=== PATIENT | male | born 1960 | race Caucasian/White ===

== ENCOUNTER 2016-08-01 15:41 | Inpatient (IN) ==
[2016-08-01] MEDS ORDERED: NS 1,000 ML IV ONE ×2 (16:09→17:38)
[2016-08-01] MEDS ORDERED: CARDIZEM IV ONE (16:10)
--- NOTE | 2016-08-01 16:12 | EKG Report ---
Test Performed on : 08/01/2016 3:39:27 PM Test Reason : WEAKNESS Blood Pressure : / mmHG Vent. Rate : 120 BPM Atrial Rate : 133 BPM P-R Int : 000 ms QRS Dur : 092 ms QT Int : 288 ms P-R-T Axes : 000 058 026 degrees QTc Int : 407 ms Atrial fibrillation. with rapid ventricular response. Abnormal ECG No previous ECGs available Unconfirmed Result
[2016-08-01 16:18] LABS: MANUAL DIFF NEEDED? NO
[2016-08-01 16:25] LABS: BASO% 0.1 % (0.0-0.8); HEMATOCRIT 27.8 % (42.0-52.0); HEMOGLOBIN 9.3 g/dL (14.0-18.0); IMM GRAN# 0.36 X1000 (0.0-0.04); IMM GRAN% 1.7 % (0.0-0.5); LYMPH% 7.6 % (20.5-51.1); MCH 29.6 PG (27-31); MCHC 33.5 g/dL (33-37); MCV 88.5 FL (81-99); MONO# 1.27 X1000 (0.11-0.59); MONO% 6.1 % (1.7-9.3); MPV 10.7 FL (7.4-10.4); NEUT% 84.5 % (42.2-75.2); PLT 623 X1000 (130-400); RBC 3.14 XMIL (4.7-6.1)
[2016-08-01 16:34] LABS: INR 1.32; PROTIME 14.1 Seconds (9.2-11.7)
[2016-08-01 16:38] LABS: PTT 48.5 Seconds (22.0-36.0)
[2016-08-01 16:45] LABS: ALBUMIN 2.5 g/dL (3.5-5.0); CALCIUM 9.4 mg/dL (8.8-10.2); MAGNESIUM 1.7 mg/dL (1.5-2.7); POTASSIUM 3.9 mmol/L (3.5-5.1); TOTAL BILIRUBIN 0.7 mg/dL (0.20-1.00)
[2016-08-01] MEDS ORDERED: HUMULIN R IV ONE (17:01)
[2016-08-01 17:13] LABS: ALLEN TEST YES; BLOOD TYPE ARTERIAL; O2(CT) 10.9 mL/dL (15.0-23.0); PCO2(98.6) 24 mmHg (35-45); PO2(98.6) 97 mmHg (60-100); SAMPLE BLOOD; SAO2 100.1 % (95.0-100.0)
[2016-08-01 17:15] LABS: DRAW SITE R RADIAL; MODALITY CANNULA; pH(98.6) 7.58 (7.35-7.45)
--- NOTE | 2016-08-01 17:39 | PROVIDER DOCUMENTATION ---
HPI-General Adult - General Chief Complaint: Weakness Stated Complaint: WEAKNESS Time Seen by Provider: 08/01/16 15:52 Source: patient Allergies/Adverse Reactions: Patient Allergies Allergy/AdvReac Type Severity Reaction Status Date / Time No Known Allergies Allergy Verified 08/01/16 16:54 Home Medications: Home Medication List Medication Instructions Recorded Confirmed Last Taken Type Insulin Detemir [Levemir] 40 unit SUBQ HS 01/02/16 08/01/16 05/13/16 21:00 History Losartan/Hydrochlorothiazide 1 each PO DAILY 01/02/16 08/01/16 08/01/16 History [Losartan-Hctz 100-25 mg Tab] Metformin [Glucophage] 1,000 mg PO BID 01/02/16 08/01/16 08/01/16 History SIMVAstatin [Zocor] 40 mg PO QHS 01/02/16 08/01/16 08/01/16 History Sitagliptin Phosphate [Januvia] 100 mg PO HS 01/02/16 08/01/16 08/01/16 History Rivaroxaban [Xarelto] 20 mg PO DAILY #30 tablet 05/14/16 08/01/16 08/01/16 Rx - History of Present Illness -Gen Adult Nature of Presenting Problems: 56 yo diabetic complains of increasing weakness. feels light headed. No chest pain. No fever. Has had longstanding B foot ulcers. On xarelto for prior DVT Review of Systems - Adult - REVIEW OF SYSTEMS - ADULT Constitutional: reports: fatique Eyes: reports: no symptoms reported Ears, Nose, Mouth & Throat: reports: no symptoms reported Cardiovascular: reports: no symptoms reported Respiratory: reports: cough, dyspnea on exertion Gastrointestinal: reports: no symptoms reported Genitourinary: reports: no symptoms reported Musculoskeletal: reports: other (bilateral foot ulcers- not getting better. bleeding alot) Psychiatric: reports: no symptoms reported Endocrine: reports: increased thirst, polyuria Hematologic/Lymphatic: reports: blood clots Past History - Adult - PAST MEDICAL HISTORY-ADULT Review of Records: reports: Old Records Reviewed, Nursing Assessment Review, Medications Reviewed Major Childhood Illnesses: reports: denies history Cardiovascular: reports: A-Fib (unclear if new or old), HTN, hyperlipidemia Respiratory: reports: sleep apnea Gastrointestinal: reports: denies history Obstetrical/Gynecological: reports: denies history Genitourinary: reports: denies history Musculoskeletal: reports: denies history Neurological: reports: denies history Endocrine/Immune: reports: Diabetes Other Conditions: reports: denies history - IMMUNIZATION STATUS Childhood Immunizations: See Nurse Assessment Flu Vaccine: See Nurse Assessment - FAMILY HISTORY Family History: reviewed, not pertinent Physical Exam-General - PHYSICAL EXAM-ADULT Initial Vital Signs Reviewed: Yes - CONSTITUTIONAL General Appearance: alert, no apparent distress - EYES Eyes: PERRL/EOMI - HEAD, EARS, NOSE, MOUTH & THROAT HENMT: normocephalic/atraumatic, moist mucous membranes, normal ENT inspection, pharynx normal - NECK Neck: non-tender, full range of motion - RESPIRATORY Respiratory: chest non-tender, lungs clear - CARDIOVASCULAR Cardiovascular: no edema, no murmur, tachycardia, irregularly irregular - GASTROINTESTINAL (ABDOMEN) Abdominal Exam: normal bowel sounds, non tender, soft, no organomegaly - LYMPHATIC Lymphatic: no adenopathy - MUSCULOSKELETAL Back Exam: normal inspection, no CVA tenderness Extremity: other (R heel several cm ulceration, foul odor, L toes have been removed with large open wound) - NEUROLOGIC Neurologic: sensory deficit (in lower extremites) Progress - PLAN OF CARE/RESULTS Progress/Plan/Lab Results: Vital Signs - 8 hr 08/01/16 15:51 08/01/16 16:47 08/01/16 16:53 Temperature 97.8 F Pulse Rate 118 H 104 H 104 H Respiratory Rate 20 20 Blood Pressure 104/57 94/59 109/71 O2 Sat by Pulse Oximetry 100 100 100 Laboratory Results - last 24 hr 08/01/16 08/01/16 08/01/16 15:47 15:47 15:47 WBC 20.96 H RBC 3.14 L Hgb 9.3 L Hct 27.8 L MCV 88.5 MCH 29.6 MCHC 33.5 RDW Std Deviation 15.0 H Plt Count 623 H MPV 10.7 H Immature Gran % (Auto) 1.7 H Neut % (Auto) 84.5 H Lymph % (Auto) 7.6 L [place] % (Auto) 6.1 Eos % (Auto) 0.0 Baso % (Auto) 0.1 Immature Gran # (Auto) 0.36 H Neut # (Auto) 17.71 H Lymph # (Auto) 1.60 [place] # (Auto) 1.27 H Eos # (Auto) 0.00 Baso # (Auto) 0.02 PT INR PTT (Actin FS) Specimen Type Sample Site pH pCO2 pO2 HCO3 Base Excess Oxyhemoglobin ABG O2 Sat (Calculated) ABG O2 Saturation ABG Carboxyhemoglobin ABG Methemoglobin Graeme Test A-a O2 Difference Total Hemoglobin Lactate Liter Flow Blood Gas Modality FiO2 % Sodium 123 L Potassium 3.9 Chloride 81 L Carbon Dioxide 20 L Anion Gap 22 BUN 35 H Creatinine 1.6 H Estimated GFR/1.73 m2 45 BUN/Creatinine Ratio 22 Glucose 391 H Calculated Osmolality 272 Calcium 9.4 Magnesium 1.7 Total Bilirubin 0.70 AST 63 H ALT 30 Alkaline Phosphatase 111 Troponin T Kcp-D-Rslwnjacwno Pept 3184 H Total Protein 9.0 H Albumin 2.5 L Globulin 6.5 Albumin/Globulin Ratio 0.4 Acetone Level 08/01/16 08/01/16 08/01/16 15:47 15:47 15:47 WBC RBC Hgb Hct MCV MCH MCHC RDW Std Deviation Plt Count MPV Immature Gran % (Auto) Neut % (Auto) Lymph % (Auto) [place] % (Auto) Eos % (Auto) Baso % (Auto) Immature Gran # (Auto) Neut # (Auto) Lymph # (Auto) [place] # (Auto) Eos # (Auto) Baso # (Auto) PT 14.1 H INR 1.32 PTT (Actin FS) 48.5 H Specimen Type Sample Site pH pCO2 pO2 HCO3 Base Excess Oxyhemoglobin ABG O2 Sat (Calculated) ABG O2 Saturation ABG Carboxyhemoglobin ABG Methemoglobin Graeme Test A-a O2 Difference Total Hemoglobin Lactate Liter Flow Blood Gas Modality FiO2 % Sodium Potassium Chloride Carbon Dioxide Anion Gap BUN Creatinine Estimated GFR/1.73 m2 BUN/Creatinine Ratio Glucose Calculated Osmolality Calcium Magnesium Total Bilirubin AST ALT Alkaline Phosphatase Troponin T < 0.010 Thh-H-Urbxmnodexx Pept Total Protein Albumin Globulin Albumin/Globulin Ratio Acetone Level SMALL A 08/01/16 17:05 WBC RBC Hgb Hct MCV MCH MCHC RDW Std Deviation Plt Count MPV Immature Gran % (Auto) Neut % (Auto) Lymph % (Auto) [place] % (Auto) Eos % (Auto) Baso % (Auto) Immature Gran # (Auto) Neut # (Auto) Lymph # (Auto) [place] # (Auto) Eos # (Auto) Baso # (Auto) PT INR PTT (Actin FS) Specimen Type ARTERIAL Sample Site R RADIAL pH 7.58 H* pCO2 24 L pO2 97 HCO3 25.7 Base Excess 1.0 Oxyhemoglobin 95.3 ABG O2 Sat (Calculated) 10.9 L ABG O2 Saturation 100.1 H ABG Carboxyhemoglobin 2.80 H ABG Methemoglobin 2.0 H Graeme Test YES A-a O2 Difference 73.0 Total Hemoglobin 8.0 L Lactate 1.40 Liter Flow 2.0 Blood Gas Modality CANNULA FiO2 % 28.0 Sodium Potassium Chloride Carbon Dioxide Anion Gap BUN Creatinine Estimated GFR/1.73 m2 BUN/Creatinine Ratio Glucose Calculated Osmolality Calcium Magnesium Total Bilirubin AST ALT Alkaline Phosphatase Troponin T Piy-L-Iyttuvldvnr Pept Total Protein Albumin Globulin Albumin/Globulin Ratio Acetone Level Orders Category Date Time Status Blood Glucose Finger Stick [FSBS/Accucheck Result] NOW Care 08/01/16 16:09 Active Cardiac Monitoring DIRECTED Care 08/01/16 16:08 Active Oxygen Therapy- ED Nursing DIRECTED Care 08/01/16 16:08 Active Saline Loc NOW Care 08/01/16 16:08 Active CHEST-PORTABLE [RAD] Stat Exams 08/01/16 17:03 Taken ABG [RESP] Routine Lab 08/01/16 17:05 Completed ACETONE SERUM [CHEM] Stat Lab 08/01/16 15:47 Completed BLOOD CULTURE [BLDCUL] Stat Lab 08/01/16 17:04 Ordered CBC WITH ELECTRONIC DIFF [HEME] Stat Lab 08/01/16 15:47 Completed COMPREHENSIVE METABOLIC PANEL [CHEM] Stat Lab 08/01/16 15:47 Completed LACTATE, PLASMA [CHEM] Stat Lab 08/01/16 17:04 Uncollected MAGNESIUM [CHEM] Stat Lab 08/01/16 15:47 Completed PRO B-NATRIURETIC PEPTIDE Stat Lab 08/01/16 15:47 Completed PROTIME WITH INR [COAG] Stat Lab 08/01/16 15:47 Completed PTT [COAG] Stat Lab 08/01/16 15:47 Completed TROPONIN T Stat Lab 08/01/16 15:47 Completed URINALYSIS-1 [URINALYSIS] Stat Lab 08/01/16 16:10 Uncollected 0.9% Sodium Chloride Inj [Ns] 1,000 ml Med 08/01/16 16:09 Discontinued IV 999 mls/hr Diltiazem [Cardizem] Med 08/01/16 16:10 Discontinued 20 mg IV NOW ONE Insulin Human Regular [Humulin R] Med 08/01/16 17:01 Discontinued 10 unit IV NOW ONE EKG [EKG] Stat Ther 08/01/16 16:08 Draft Result Diagrams: 08/01/16 15:47 08/01/16 15:47 - EKG 1 EKG Read and Signed by:: Marylou Duong EKG Interpretation (*Must complete 3 of following elements*): Abnormal Rate: 120 Rhythm: atrial fibrillation - CONSULTS/PCP/HOSPITALIST Notification #1 *Consult/PCP/Hospitalist*: Dr Sanchez Time Discussed: 17:40 Consult Disposition: Will see in ED, Admit Departure - Departure Time of Disposition Decision: 17:40 DIAGNOSIS: Atrial fibrillation, Anemia, Diabetic foot ulcer, Elevated WBC count, Hyperglycemia Disposition: ADMITTED INPATIENT 09 Certified Medical Emergency: Emergent Condition: Poor Referrals and Follow-Ups: None,PCP [Primary Care Provider] -
--- NOTE | 2016-08-01 18:07 | Diag Imaging Result Document ---
PROCEDURE NAME: CHEST-PORTABLE - 08/01/2016 STUDY: Portable chest, 2 views: The lungs are well expanded. The heart is not enlarged. The vessels are not distended. There are no infiltrates. No pleural effusion is identified. IMPRESSION: No pneumonia.
[2016-08-01] MEDS ORDERED: VANCOMYCIN IV PER PHARMACY MISC SCH (18:45)
--- NOTE | 2016-08-01 19:24 | HISTORY AND PHYSICAL ---
CHIEF COMPLAINT: Acute onset weakness. HISTORY OF PRESENT ILLNESS: Mr. Morataya is a 56-year-old male with a history of poorly controlled diabetes, right lower extremity DVT on anticoagulation, severe bilateral diabetic wound ulcers seen previously by Dr. Geronimo and others who presents with acute onset of weakness. The patient reports that he has been essentially bedridden over the past 2 months because he has had chronic right lower extremity pain since his DVT diagnosis. He reports lying in bed around 18 hours a day. Today however he got up and went to watch TV and when he sat down he reports that his energy became acutely drained. He checked his blood sugar, it was found to be 555. He called a local walk-in clinic to see if he could drink some water to bring it down but they told him to come to the ER. He had no chest pain or shortness of breath. No palpitations or dizziness associated with the acute weakness. He called an ambulance and was brought to the ER. He was noted to be in atrial fibrillation with a rapid response, his lab work was consistent with leukocytosis, anemia, renal insufficiency and hyponatremia. Both lower extremities are chronically infected and are foul smelling and he reports fairly severe pain in both of his feet. He denies any fevers or chills. He denies any lower extremity edema or orthopnea. His heart rate is currently 101 beats a minute without any IV Cardizem and his blood pressure is marginally low. We are going to admit him to the CICU for atrial fibrillation with rapid ventricular response and early sepsis. PAST MEDICAL HISTORY: 1. Diabetes mellitus, poorly controlled. 2. Questionable CKD. 3. Right lower extremity DVT. 4. Hypertension. 5. Hyperlipidemia. 6. Questionable paroxysmal atrial fibrillation, patient states he has been on sotalol but does not know what for. 7. Nicotine dependence. 8. Medical noncompliance. SURGICAL HISTORY: He has had all 5 toes of the left foot amputated. SOCIAL HISTORY: Patient smokes 2-3 cigarettes a day. He is . He has 2 children. He lives alone. He denies alcohol or drug use. FAMILY HISTORY: Mother from CVA. He has a sister from unknown cause and father he does not know and is unsure of his health status or if he is even alive. REVIEW OF SYSTEMS: Fourteen-point review of systems obtained and found to be negative with the exception of the HPI. HOME MEDICATIONS: Levemir 40 units at bedtime, losartan/hydrochlorothiazide 1 daily, Glucophage 1000 mg b.i.d., Xarelto 20 mg daily, Zocor 40 mg at bedtime, Januvia 100 mg p.o. at bedtime. ALLERGIES: No known drug allergies. PHYSICAL EXAMINATION: VITAL SIGNS: Blood pressure is 110/70, heart rate is 104, respiratory rate 22, O2 saturation 100% on 2 L nasal cannula. Temperature is 97.8 degrees. GENERAL: This is a chronically ill and disheveled appearing 56-year-old male lying in hospital bed in no acute distress. NEUROLOGIC: The patient is awake, alert, and oriented. Follows commands without focal deficits. HEENT: Head is atraumatic, normocephalic. His pupils are equal, round, reactive to light. Oral mucosa is dry. Trachea is midline. No JVD. CHEST: Diminished at the bases but clear to auscultation bilaterally. CV: Tachy and irregular. S1-S2 is noted. GI: Soft, nondistended, nontender. Bowel sounds are active. EXTREMITIES: Both lower extremities with trace edema, cool to touch and diminished pulses with scattered ulcerations on both feet. DIAGNOSTIC DATA: Chest x-ray is negative for acute process. EKG, atrial fibrillation, RVR. WBC 20.96, hemoglobin 9.3, hematocrit 27.8, platelet count 623,000. PT 14.1, INR 1.32. ABG on 2 L pH 7.58, CO2 24, O2 97, bicarb is 25.7. Sodium 123, potassium 3.9, chloride 81, CO2 20, anion gap 22, BUN 35, creatinine 1.6, glucose is 391, calcium 9.4, magnesium 1.7, AST 63, ALT 30, alkaline phosphatase 111. Troponin negative, pro B is 3184, albumin 2.5 . ASSESSMENT AND PLAN: 1. Atrial fibrillation, rapid ventricular response: Unclear if atrial fibrillation is a new diagnosis or not for this patient. He will be admitted to the CICU. Will start oral Cardizem, he is already on anticoagulation. Will consult Cardiology and check thyroid function and echocardiogram in the morning. Will continue the trend his cardiac enzymes. 2. Sepsis: The patient clearly meets criteria with leukocytosis and tachycardia. He also has a source of both lower extremity foot ulcers. Blood cultures have been ordered as has a stat lactic acid. We are going to start vancomycin and Zosyn renally dosed. 3. Bilateral lower extremity foot ulcers: Dr. Geronimo has been consulted. Will continue antibiotics. 4. Renal insufficiency: Likely chronic. We have looked at his previous creatinines and they have all been above 1.5 this year. We will check urine electrolytes and hydrate. Will hold his losartan and hydrochlorothiazide for now as well as his oral antidiabetics. Will check a creatinine in the morning. 5. Anemia, normocytic: This is likely chronic disease related. Iron studies have been ordered. We will treat accordingly. 6. Hypertension: Chronic and stable. He is actually a bit hypotensive but we are going to add oral Cardizem and monitor his pressure closely. 7. Hyponatremia: Likely hypovolemic given his physical exam. Urine studies have been ordered and we are hydrating the patient. 8. Diabetes mellitus: Looks to be poorly controlled. Hemoglobin A1c has been ordered. We have added pattern sugars and he will likely need basal insulin as well. 9. History of right lower extremity deep vein thrombosis: Overall this is stable. Will continue his anticoagulation. 10. Deep vein thrombosis prophylaxis provided with his anticoagulation. DISCHARGE PLANNING: The patient lives alone. He states that sometimes he has to crawl to the bathroom, we will consult social work as he will likely need long-term arrangements. Dictated by DEVIN Razo for Deborah Sanchez MD cc: DEVIN Razo MD
--- NOTE | 2016-08-01 19:33 | Diag Imaging Result Document ---
PROCEDURE NAME: FOOT COMPLETE LEFT - 08/01/2016 LEFT FOOT, 3 VIEWS: The mid and distal second through fifth metatarsals have been removed as well as each of the five toes. There are arthritic changes at the tarsal first metatarsal joint. Small posterior and inferior calcaneal bone spurs are present. Subcutaneous air is found along the upper foot. IMPRESSION: There is cellulitis to the foot with questionable osteomyelitis involving the distal first metatarsal.
--- NOTE | 2016-08-01 19:37 | Diag Imaging Result Document ---
PROCEDURE NAME: FOOT COMPLETE RIGHT - 08/01/2016 RIGHT FOOT, 3 VIEWS: There is soft tissue swelling with subcutaneous air about the calcaneus. There is bone destruction to the calcaneus with a large fracture fragment inferiorly located. There is dislocation of the second and third toes at the metatarsophalangeal joints. IMPRESSION: Cellulitis as well as osteomyelitis to the calcaneus.
[2016-08-01] MEDS ORDERED: NS 1,000 ML IV SCH (20:17)
[2016-08-01] MEDS ORDERED: NORCO-7.5 PO PRN (20:17)
[2016-08-01 21:03] LABS: IRON SATURATION 26 %; TIBC 122 ug/dL; TOTAL IRON 32 ug/dL (53-167); UNBOUND IRON 90 ug/dL (112-346)
[2016-08-01 21:04] LABS: HEMOGLOBIN A1C 8.6 % (4.8-6.0)
[2016-08-01 21:13] LABS: FREE T4 1.61 ng/dL (0.93-1.70)
[2016-08-01] MEDS ORDERED: INSULIN PEN NEEDLES ONE (21:42)
[2016-08-01] MEDS: ZOSYN 2.25 GM/NS 2.25 GM/50 ML IVPB IV SCH (21:48)
[2016-08-01] MEDS: CARDIZEM PO SCH (21:48)
[2016-08-01] MEDS: ZOCOR PO SCH (21:49)
[2016-08-01] MEDS: LEVEMIR SUBQ SCH (21:50)
[2016-08-01] MEDS: HUMULIN R SUBQ SCH (21:50)
[2016-08-01] MEDS: NICODERM PATCH TD SCH (22:01)
[2016-08-01] MEDS ORDERED: PNEUMOVAX 23 IM ONE (22:17)
[2016-08-01] MEDS ORDERED: VANCOMYCIN 2,500 MG in NS 500 ML IV ONE (23:00)
[2016-08-02 00:02] LABS: URINE SOURCE CLEAN CATCH
[2016-08-02 00:09] LABS: BILIRUBIN URINE NEGATIVE (NEGATIVE); BLOOD URINE TRACE (NEGATIVE); COLOR YELLOW; GLUCOSE URINE >1000 mg/dL (NEGATIVE); LEUKOCYTES URINE NEGATIVE (NEGATIVE); NITRITE URINE NEGATIVE (NEGATIVE); PH URINE 5.5; PROTEIN URINE 50 mg/dL (NEGATIVE); SP GRAVITY URINE 1.015; TURBIDITY URINE CLEAR (CLEAR); UROBILINOGEN URINE NORMAL (NORMAL)
[2016-08-02 00:10] LABS: URINE MICRO REVIEW NEEDED? YES
[2016-08-02 00:14] LABS: UR EPITHELIAL CELLS <10 /HPF (<10); URINE BACTERIA 1+ /HPF; URINE RBC <10 /HPF (<10); URINE WBC <10 /HPF (<10)
[2016-08-02 00:25] LABS: UR PROT RANDOM 81.6 mg/dL
[2016-08-02 00:26] LABS: UR CREAT RANDOM 100.1 mg/dL (14-26)
[2016-08-02 00:29] LABS: URINE CRYSTALS NONE SEEN
[2016-08-02 00:30] LABS: UR AMPHETAMINES QUAL NONE DETECTED (NONE DETECT); UR BARBITUATES QUAL NONE DETECTED (NONE DETECT); UR BENZODIAZEPIN QUAL NONE DETECTED (NONE DETECT); UR CANNABINOIDS QUAL PRESUMPTIVE POSITIVE (NONE DETECT); UR COCAINE QUAL NONE DETECTED (NONE DETECT); UR METHADONE QUAL NONE DETECTED (NONE DETECT); UR OPIATES QUAL NONE DETECTED (NONE DETECT); UR OXYCODONE QUAL NONE DETECTED (NONE DETECT); UR PCP QUAL NONE DETECTED (NONE DETECT)
[2016-08-02] MEDS: ZOSYN 2.25 GM/NS 2.25 GM/50 ML IVPB IV SCH ×4 (02:56→20:21)
[2016-08-02] MEDS: CARDIZEM PO SCH ×4 (02:56→20:23)
[2016-08-02] MEDS: NORCO-7.5 PO PRN ×4 (02:57→20:30)
[2016-08-02 03:25] LABS: ALLEN TEST YES; BE 3.2 mmoll (-3.0-3.0); BLOOD TYPE ARTERIAL; DRAW SITE R RADIAL; METHB 1.7 % (0.0-1.5); MODALITY ROOM AIR; O2(CT) 10.3 mL/dL (15.0-23.0); PCO2(98.6) 32 mmHg (35-45); PO2(98.6) 77 mmHg (60-100); SAMPLE BLOOD; SAO2 98.3 % (95.0-100.0); THB 7.6 g/dL (11.5-17.4); pH(98.6) 7.52 (7.35-7.45)
[2016-08-02 05:57] LABS: HEMATOCRIT 24.2 % (42.0-52.0); HEMOGLOBIN 7.8 g/dL (14.0-18.0); MCH 29.1 PG (27-31); MCHC 32.2 g/dL (33-37); MCV 90.3 FL (81-99); MPV 10.1 FL (7.4-10.4); RBC 2.68 XMIL (4.7-6.1)
[2016-08-02] MEDS: HUMULIN R SUBQ SCH ×4 (06:04→20:28)
[2016-08-02 06:14] LABS: AGAP 15; BUN 34 mg/dL (8-22); CALCIUM 8.2 mg/dL (8.8-10.2); CHLORIDE 95 mmol/L (98-107); COSMO 276; HDL 12 mg/dL (35-55); LDL 40 mg/dL; POTASSIUM 3.7 mmol/L (3.5-5.1); SODIUM 134 mmol/L (136-145); TCO2 24 mmol/L (25-35); TRIGLYCERIDES 103 mg/dL (39-160); VLDL 21 mg/dL
[2016-08-02] MEDS ORDERED: XARELTO PO SCH (09:00)
[2016-08-02] MEDS: FOLIC ACID PO SCH (09:39)
[2016-08-02] MEDS: NICODERM PATCH TD SCH (10:41)
--- NOTE | 2016-08-02 12:39 | CONSULTATION ---
DATE OF CONSULTATION: 08/02/2016 CHIEF COMPLAINT: Diabetic foot infection. HISTORY: This is a 56-year-old white male, followed by Dr. Geronimo [facility] with diabetic foot infection. He has pain in his feet. He is almost nonambulatory. He came in this time because his diabetes was out of control with a sugar over 500. He has a past history pertinent for poorly controlled diabetes, hypertension, hyperlipidemia, paroxysmal atrial fibrillation, nicotine dependence, medical noncompliance, right lower extremity superficial venous thrombosis. PREVIOUS SURGERY: Includes amputation of the 5 toes on his left foot. SOCIAL HISTORY: Smokes 2-3 packs a day. He is and lives alone. Denies alcohol use. FAMILY HISTORY: Pertinent for stroke. REVIEW OF SYSTEMS: Pertinent for the leg discomfort, drainage from his foot. Denies chest pain or shortness of breath. EXAM: He is afebrile. Heart rate 110. Respiratory rate 20, blood pressure 101/60. Bilateral breath sounds.Heart: Regular rhythm. Abdomen: Soft. Femoral pulses are present. I think I feel a 1+ right posterior tibial pulse, I am not sure about on the left. He has tissue necrosis on the distal end of his left amputated foot. No active purulent drainage is noted on the right side. There is purulent drainage from the hole on the right heel. There is diffuse tenderness and erythema. X-rays show osteomyelitis of the right heel and possibly the left 1st metatarsal. ASSESSMENT: 1. Diabetic foot infection with osteomyelitis of both feet. I do think he needs to be covered with antibiotic therapy. We will get a lower extremity arterial study to determine his arterial flow and which may give us an idea of his chance for healing peripheral or distal debridement. 2. He has a history of superficial venous thrombosis He has got a deep venous thrombosis. The plan will be to get a lower extremity arterial study and then he will certainly need debridement of the soft tissue of the left forefoot with amputation of the first metatarsal on the right. He will need debridement of his heel with removal of a significant portion of his calcaneus if in fact, he does not undergo a higher amputation. cc: Delgado Merino MD
--- NOTE | 2016-08-02 13:44 | PROGRESS NOTE ---
DATE: 08/02/2016 SUBJECTIVE: The patient complains of generalized pain. He does have a lot of discharge coming from his right foot infection. OBJECTIVE: Vital Signs: Temperature 98 degrees, blood pressure 101/60, heart rate 110, respirations 20, O2 saturations 100% on room air. General: This is an elderly male, lying in bed, in no acute distress. Head: Normocephalic atraumatic. Heart: S1, S2 normal, tachycardic. Lungs: Clear to auscultation bilaterally. Abdomen: Positive bowel sounds. Soft, nontender, nondistended. Extremities: Both feet are wrapped in a dry gauze dressing. LABS: White blood cell count, 18 hemoglobin 7.8, hematocrit 24, platelets 503, 000. Sodium 134, potassium 3.7, chloride 95, CO2 24, BUN 34, creatinine 1.2, glucose 110. ASSESSMENT AND PLAN: 1. Infected bilateral lower extremity diabetic foot wounds. We will continue with broad-spectrum antibiotics. General Surgery is following. We will also consult ID. 2. Anemia. We will monitor the patient's hemoglobin and hematocrit closely. The patient's hemoglobin and hematocrit did drop since yesterday however the patient is receiving IV fluids. 3. Severe protein calorie malnutrition. We will encourage the patient to increase his oral intake. 4. Uncontrolled diabetes mellitus type 2. Continue on sliding scale insulin plus Levemir at bedtime. 5. Folic deficiency. Continue on folic acid replacement. 6. History of deep vein thrombosis. Aware. Xarelto on hold. 7. Tobacco dependence. Continue on the NicoDerm patch. 8. Leukocytosis. Slowly improving. Continue on Vancomycin. So far the wound culture is growing gram-positive cocci. cc: Deborah Sanchez MD [facility]
--- NOTE | 2016-08-02 14:31 | CONSULTATION ---
DATE OF CONSULTATION: 08/02/2016 IMPRESSION: 1. New onset atrial fibrillation. Patient initially felt some fatigue but currently asymptomatic with rate controlled. Patient already anticoagulated for deep vein thrombosis. 2. Diabetes mellitus. 3. Recent right lower extremity deep vein thrombosis. Patient has been on anticoagulation with Xarelto for over 6 weeks. 4. Hypertension. 5. Hyperlipidemia. 6. Status post left transmetatarsal amputation for diabetic related foot problems. Patient also has right heel ulcer. Also relates diabetes mellitus. ALLERGIES: No known drug allergies. MEDICATIONS PRIOR TO ADMISSION: As listed. RECOMMENDATIONS: 1. Continue anticoagulation with Xarelto. 2. For the present would pursue rate control and anticoagulation. Will consider antiarrhyhthmic therapy and possible cardioversion after further workup. 3. Echocardiography. 4. Screen for coronary disease with Lexiscan sestamibi study in light of patient 's multitude of coronary risk factors. 5. Smoking cessation strongly advised. HISTORY: This 56-year-old white male with past history of poorly-controlled diabetes mellitus, right lower extremity DVT on anticoagulation, bilateral diabetic foot issues, hypertension, hyperlipidemia and chronic cigarette use presented with acute onset of weakness. He has been pretty much in bed over the past few months because of chronic right lower extremity pain. He has been found to have a right lower extremity DVT. He also has significant diabetic foot problems. He got up yesterday to watch TV and sat down on the couch. He suddenly became weak. There was no chest pain or dyspnea. He checked his blood sugar and found it to be significantly elevated. He called a local walk-in clinic and was advised to go the emergency room. He contacted an ambulance and was brought to the emergency room. He was found to be in atrial fibrillation with rapid ventricular rate response. He was subsequently admitted for further evaluation. His heart rate has come under better control but he remains in atrial fibrillation. He relates feeling better and denies any weakness, chest discomfort or dyspnea. He is not aware of any previous cardiac problems. PAST MEDICAL HISTORY: Includes 1. Diabetes mellitus poorly controlled. 2. Right lower extremity deep vein thrombosis. 3. Hypertension. 4. Hyperlipidemia. 5. Chronic diabetic foot problems. Patient is status post left transmetatarsal amputation and also has a ongoing problem with right heel ulcer. 6. Medical noncompliance. 7. No known drug allergies. MEDICATIONS: Prior to admission as listed. SOCIAL HISTORY: He has history of smoking 1/2 pack of cigarettes per day but has cut down the last few weeks. He is retired [employer] dedicated truck driver. He is actually disabled. He is . FAMILY HISTORY: Negative for premature coronary disease. REVIEW OF SYSTEMS: Fourteen point review of systems obtained and found to be negative with exception of HPI. PHYSICAL EXAM: This is a middle-aged white male in no distress.Vital Signs: As recorded. Noteworthy for heart rate of 125 beats per minute with ECG monitor showing atrial fibrillation. Blood pressure stable. HEENT: Extraocular movements intact. Mucous membranes moist. Neck: Supple. No JV distention. There are no carotid bruits. Chest: Clear to auscultation. Cardiac Exam: Reveals an irregular rate and rhythm without appreciable murmur or gallop. Abdomen: Soft, nontender. Bowel sounds are normal. Extremities: Without edema. Neurologic: Reveals him to be alert, fully oriented. Speech fluent. Moves all 4 extremities equally well. Skin: Warm, dry. Psychiatric: Reveals his mood to be appropriate. DIAGNOSTIC DATA: ECG demonstrates atrial fibrillation with rapid ventricular rate. cc: Mitch Blanchard MD MTDD
--- NOTE | 2016-08-02 15:31 | VASCULAR LAB ---
DATE: 08/02/2016 LOWER EXTREMITY ARTERIAL STUDY INDICATION: Patient has diabetic foot ulcerations, both feet. FINDINGS: Right brachial pressure 113; the left is 101. Right high-thigh pressure 104, right low- thigh pressure 108, right calf pressure 99, right DP 97, right posterior tibial 85, for a right AB index of 0.86. Right great toe pressure of 59, for a right [id number] index of 0.52. The PVRs are only mildly compromised on the right until the digital level, and they are severely compromised at the digital level. On the left side, the left high-thigh pressure is 114, left low- thigh pressure 84, left calf pressure 62, left DP pressure of 58, left posterior tibial pressure of 60, for a left AB index of 0.53. He does not have toes on the left. The PVRs are moderately diminished on the left. INTERPRETATION: Left superficial femoral occlusion. On the right, there does appear to be adequate flow to the ankle and heel level. The digital flow is severely compromised. cc: Delgado Merino MD
[2016-08-02] MEDS: VANCOMYCIN 2,250 MG in NS 500 ML IV SCH (16:16)
[2016-08-02] MEDS: ZOCOR PO SCH (20:23)
[2016-08-02] MEDS: LOPRESSOR PO SCH (20:23)
[2016-08-02] MEDS: LEVEMIR SUBQ SCH (20:24)
[2016-08-03] MEDS: NORCO-7.5 PO PRN ×4 (00:11→19:54)
[2016-08-03] MEDS: CARDIZEM PO SCH ×4 (02:20→19:55)
[2016-08-03] MEDS: ZOSYN 2.25 GM/NS 2.25 GM/50 ML IVPB IV SCH ×5 (02:20→23:58)
[2016-08-03] MEDS: HUMULIN R SUBQ SCH ×4 (06:30→20:02)
[2016-08-03 06:39] LABS: AGAP 14; BUN 24 mg/dL (8-22); CALCIUM 8.3 mg/dL (8.8-10.2); CHLORIDE 91 mmol/L (98-107); COSMO 266; POTASSIUM 4.3 mmol/L (3.5-5.1); SODIUM 129 mmol/L (136-145); TCO2 24 mmol/L (25-35)
[2016-08-03] MEDS ORDERED: SAMSCA PO ONE (07:18)
[2016-08-03 07:20] LABS: HEMATOCRIT 25.1 % (42.0-52.0); HEMOGLOBIN 7.8 g/dL (14.0-18.0); MCH 29.2 PG (27-31); MCHC 31.1 g/dL (33-37); MPV 10.1 FL (7.4-10.4); RBC 2.67 XMIL (4.7-6.1)
[2016-08-03] MEDS: NICODERM PATCH TD SCH (09:13)
[2016-08-03] MEDS: LOPRESSOR PO SCH ×3 (09:26→23:58)
[2016-08-03] MEDS: FOLIC ACID PO SCH (09:26)
[2016-08-03] MEDS ORDERED: NS 500 ML ONE (10:42)
--- NOTE | 2016-08-03 12:53 | Diag Imaging Result Document ---
PROCEDURE NAME: ANGIOGRAM/AORTA W/RUNOFF - 08/03/2016 CT ANGIOGRAM WITH RUNOFF OF THE ABDOMEN, PELVIS, AND LOWER EXTREMITIES: TECHNIQUE: MIP images obtained. FINDINGS: There is fatty infiltration of the liver and the liver is prominent. The spleen is also enlarged measuring at least 16 cm. Normal pancreas, gallbladder, and right adrenal gland. There is a fat filled left adrenal nodule measuring at least 3.6 cm. Normal enhancement of the kidneys. There is a cyst posteriorly on the left. No renal stones or hydronephrosis. No bowel obstruction. The urinary bladder is moderately distended. The prostate is not enlarged. No abdominal aortic aneurysm. Normal takeoff of the celiac artery and superior mesenteric artery. There is a common trunk. Normal takeoff of each renal artery. Mild atherosclerosis in the distal abdominal aorta. LEFT: Mild plaque in the common iliac artery. No stenosis. Normal external iliac artery. A small amount of plaque is present of the femoral artery, but no stenosis. There are multiple small stenoses in the superficial femoral artery. There is complete occlusion distally with reconstitution near the distal adductor canal. Normal flow in the popliteal artery with mild atherosclerosis. There is a three-vessel trifurcation. The anterior and posterior tibial arteries are tiny, but do continue to the ankle. RIGHT: There is a small amount of plaque in the common iliac artery. No stenosis. Normal external iliac artery. Small amount of plaque is present in the femoral artery , but no stenosis. Multiple small stenoses are found in the superficial femoral artery. No stenosis greater than 50%. Normal flow in the popliteal artery. The anterior tibial arteries are tiny. There is very little flow and I am unsure if they are patent all the way to the ankles. There are multiple fracture fragments with osteolysis/bone destruction involving the calcaneus. There is soft tissue swelling with subcutaneous air. There is also air in the subcutaneous tissues about the distal tarsal bones of the left foot. There is air within the first metatarsal bone of the left foot with an ulcer distally. The toes on the left foot have been removed. IMPRESSION: 1. Occlusion of the left superficial femoral artery with reconstitution distally. 2. Osteomyelitis in the left foot and right calcaneus. 3. Hepatosplenomegaly with fatty infiltration of the liver. [facility]
--- NOTE | 2016-08-03 14:19 | PROGRESS NOTE ---
DATE: 08/03/2016 SUBJECTIVE: The patient complains of pain in his feet but otherwise has no other complaints. OBJECTIVE: Vital Signs: Temperature 98.2 degrees, blood pressure 95/57, heart rate 103, respirations 16, O2 saturation is 100% on room air. General: This is a chronically ill- appearing, elderly male, lying in bed, in no acute distress. Head: Normocephalic, atraumatic. Heart: S1, S2. Normal. Regular rate and rhythm. Lungs: Clear to auscultation bilaterally. No wheezes. No rales. No rhonchi. Abdomen: Positive bowel sounds. Soft, nontender, nondistended. Extremities: Both feet are wrapped in a clean, dry dressing. LABS: White blood cell count 18, hemoglobin 7.8, hematocrit 25, platelets 512, 000. Sodium 129, potassium 4.3, chloride 91, CO2 24, BUN 24, creatinine 1.1, glucose 153. ASSESSMENT AND PLAN: 1. Methicillin-resistant Staphylococcus aureus of the bilateral lower extremity diabetic foot wounds. Continue on vancomycin. ID has been consulted. General surgery is following. 2. MRSA bacteremia. Continue on vancomycin. Will order a 2D echo. 3. Anemia. Will transfuse the patient with 1 unit of packed red blood cells today. 4. Severe protein calorie malnutrition. Continue to encourage the patient to increase his p.o. intake. 5. Uncontrolled diabetes mellitus type 2. Continue on Levemir plus sliding scale insulin. 6. Folate deficiency. Continue on folic acid replacement. 7. History of deep vein thrombosis. Xarelto is on hold. Patient is on full dose lovenox. 8. Leukocytosis. Continue on IV antibiotic therapy. 9. Tobacco dependence. Continue on the NicoDerm patch. 10. Hyponatremia. Will give the patient a dose of Samsca today. 11. Gastrointestinal prophylaxis. Will start the patient on omeprazole. cc: Deborah Sanchez MD MTDD
[2016-08-03] MEDS: VANCOMYCIN 2,250 MG in NS 500 ML IV SCH (15:41)
--- NOTE | 2016-08-03 17:24 | PROGRESS NOTE ---
DATE: 08/03/2016 SUBJECTIVE: The patient is resting comfortably. He has no chest discomfort or dyspnea. OBJECTIVE: Vital Signs: Blood pressure 98/66, heart rate 80 and regular with ECG monitor showing sinus rhythm. There is no significant jugular venous distention. Chest: Clear to auscultation. Cardiac: Reveals a regular rate and rhythm without appreciable murmur or gallop. There is no evidence of edema. IMPRESSION: 1. Intermittent atrial fibrillation. Patient currently back in sinus rhythm. 2. Diabetes mellitus. 3. Recent right lower extremity deep vein thrombosis. Patient already anticoagulated with Xarelto. 4. Hypertension. 5. Hyperlipidemia. 6. Right heel ulcer related to diabetes. RECOMMENDATIONS: 1. Continue metoprolol. 2. Continue Xarelto. 3. Follow up echocardiography. cc: Mitch Blanchard MD
[2016-08-03] MEDS: ZOCOR PO SCH ×2 (19:55→23:59)
[2016-08-03] MEDS: LEVEMIR SUBQ SCH (20:01)
--- NOTE | 2016-08-03 20:37 | CONSULTATION ---
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 RECOMMENDATIONS: I agree with treating the patient with vancomycin. I think we can discontinue Zosyn. Also I plan to order repeat blood cultures and I agree with ordering an echocardiogram to look for vegetations. When the patient's repeat blood cultures are negative then I think we can put in a long-term IV. I discussed with the patient various types of long-term IVs and he would prefer to have the PICC rather than the other options that I discussed with them. DISCUSSION: The patient tells me that for the past 20 years he has been battling infection in his feet. His most recent 1 in his left foot he has had transmetatarsal amputation and he has developed swelling and pain as well as erythema of the foot. He came into the hospital because he was very weak. When he did come in his hemoglobin was down to 9.3. The patient 's CBC shows a white count of 18,330, hemoglobin 7.8, and platelet count 512,000. A culture from the patient's blood left foot is growing methicillin-resistant Staph aureus. Creatinine is 1.1. GFR is greater than 60. The patient had a CT angiogram which showed a left superficial femoral artery occlusion, left foot osteomyelitis, and a fatty liver. Patient's chest x-ray shows no pneumonia. X-ray of the left foot showed cellulitis and possible osteomyelitis. X-ray of the right foot showed cellulitis and osteomyelitis. PAST MEDICAL HISTORY/REVIEW OF SYSTEMS: Eyes and ears: He denies difficulty hearing or seeing. Neck: No stiffness. Cardiovascular: No chest pain or palpitations. Lungs: No dyspnea or wheezing. : No dysuria or flank pain. GI: No nausea, vomiting, or diarrhea. Neurologic: No motor or sensory deficit. No seizures. The patient tells me he is unable to walk now because of pain in both legs. Endocrine: The patient has diabetes but not thyroid disease. Integument: No rashes. The remainder of the patient's review of systems was completed and was negative. PREVIOUS HOSPITALIZATIONS AND OPERATIONS: He told me he has only been hospitalized once and that was for a transmetatarsal amputation of the left foot. MEDICAL DISEASES: Positive for diabetes mellitus, deep venous thrombosis, hypertension, hyperlipidemia, fatty liver, paroxysmal atrial fibrillation, cigarette smoking, and medical noncompliance. INFECTIOUS DISEASE: Negative for pneumonia and UTI. FAMILY HISTORY: Positive for stroke, myocardial infarction, and diabetes mellitus. SOCIAL HISTORY: [place] He smokes cigarettes. He does not abuse drugs except for he occasionally smokes marijuana. He is . He lives alone. He stopped drinking alcohol 10 years ago. He is disabled. ALLERGIES: He has no known drug allergies. HOME MEDICATIONS: Include the following. Januvia, Zocor, Xarelto, Glucophage, losartan/hydrochlorothiazide, and insulin. PHYSICAL EXAMINATION: Vital Signs: Temperature is 98.2 degrees, pulse 103, respirations 16, blood pressure 82/56. General: This is an ill-appearing, middle-aged male who is having pain he told me in his left foot. Head, eyes, ears, nose, and Throat: No drainage noted from the nose or ears. There were no white patches in the mouth. Neck: No meningismus. Lungs: Clear to auscultation. Cardiovascular: Irregular heart rate. There were diminished peripheral pulses. Abdomen: Soft and nontender. Neurologic: Patient is alert. He can move his extremities. There is no tremor. His sensation was intact to touch. Extremities: Both feet have large dressings around them. The dressings are in contact. The patient did not want me to remove the dressings at this time. Integument: No rash noted. Thank you for the consult. cc: Sj Juárez MD MTDD
--- NOTE | 2016-08-03 21:15 | ECHO REPORT ---
ORDER DATE: 08/03/2016 ECHOCARDIOGRAM: SUMMARY: 1. Technically difficult study due to limited acoustic window quality. 2. Aortic, mitral, tricuspid and pulmonic valves are without evidence of structural abnormality. There is mild tricuspid regurgitation and trace mitral regurgitation. Estimated systolic PA pressure by Doppler is 30 mmHg. The aortic root is normal size. 3. Normal left ventricular dimensions suggested on 2-D images. Estimated left ventricular ejection fraction appears to be approximately 55%. No obvious wall motion can be appreciated. Left atrium, right atrium, and right ventricle are of normal size with preserved right ventricular systolic function. 4. No pericardial effusion. 5. Appearance of inferior vena cava suggests normal central venous pressure. 6. Atrial fibrillation during study. CONCLUSION: 1. Technically difficult study. 2. Mild tricuspid regurgitation and trace mitral regurgitation. 3. Normal left ventricular systolic function without obvious wall motion abnormality. cc: MD Deborah Herbert MD
[2016-08-04] MEDS: LOVENOX SUBQ SCH ×2 (00:42→08:34)
[2016-08-04] MEDS: NORCO-7.5 PO PRN ×3 (00:44→21:23)
[2016-08-04] MEDS: CARDIZEM PO SCH ×3 (02:47→13:44)
[2016-08-04] MEDS: ZOSYN 2.25 GM/NS 2.25 GM/50 ML IVPB IV SCH (02:47)
[2016-08-04] MEDS: VANCOMYCIN 2,250 MG in NS 500 ML IV SCH ×2 (04:43→22:58)
[2016-08-04 05:47] LABS: HEMATOCRIT 24.7 % (42.0-52.0); HEMOGLOBIN 7.8 g/dL (14.0-18.0); MCH 29.2 PG (27-31); MCHC 31.6 g/dL (33-37); MCV 92.5 FL (81-99); MPV 9.8 FL (7.4-10.4); RBC 2.67 XMIL (4.7-6.1)
[2016-08-04 05:49] LABS: AGAP 13; BUN 18 mg/dL (8-22); CALCIUM 8.6 mg/dL (8.8-10.2); CHLORIDE 97 mmol/L (98-107); COSMO 274; POTASSIUM 4.1 mmol/L (3.5-5.1); SODIUM 135 mmol/L (136-145); TCO2 25 mmol/L (25-35)
--- NOTE | 2016-08-04 06:01 | EKG Report ---
Test Performed on : 08/02/2016 06:04:58 AM Test Reason : atrial fibrillation Blood Pressure : / mmHG Vent. Rate : 116 BPM Atrial Rate : 141 BPM P-R Int : 000 ms QRS Dur : 096 ms QT Int : 312 ms P-R-T Axes : 000 062 015 degrees QTc Int : 433 ms Atrial fibrillation. with rapid ventricular response. Abnormal ECG When compared with ECG of 01-AUG-2016 15:39, (Unconfirmed) No significant change was found Confirmed by Dariel ESQUIVEL, Peter Jessica ([id number]) on 08/04/2016 9:00:54 AM
[2016-08-04] MEDS: PRILOSEC PO SCH (06:10)
[2016-08-04] MEDS: HUMULIN R SUBQ SCH ×4 (06:53→21:31)
--- NOTE | 2016-08-04 06:55 | PROGRESS NOTE ---
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 MEDICATIONS: The patient is receiving vancomycin as a single agent now. PHYSICAL EXAMINATION: Vital Signs: Temperature is 98.2 degrees, pulse 97, respirations 14, blood pressure 109/42. General: This is a somewhat ill-appearing middle-aged male who is in no acute distress. Lungs: Clear to auscultation. Cardiovascular: Irregular heart rate. Abdomen: Soft and nontender. I looked at both the patient's feet. The left foot distally is necrotic. The right foot has a plantar ulcer that is not draining. There is no erythema, purulence, or necrosis. LAB AND X-RAY: No new x-ray for today. An echocardiogram shows mild tricuspid regurgitation and trace mitral regurgitation with normal left ventricular systolic function. The patient's CBC today shows a white count that is elevated at 18,220, hemoglobin 7.8, and platelet count 480,000. Creatinine is 1. The GFR is greater than 60. Blood and wound cultures of the left foot are growing methicillin-resistant Staph aureus. ASSESSMENT AND PLAN: The patient has chronic osteomyelitis of the left foot and bacteremia. My plan is to continue vancomycin. Dr. Geronimo has been following the patient and he will decide if surgery is indicated for his left foot. COMORBIDITIES: Includes diabetes mellitus, cigarette smoking, and medical noncompliance. cc: Sj Juárez MD MTDHoracio
[2016-08-04] MEDS: LOPRESSOR PO SCH ×2 (08:34→21:25)
[2016-08-04] MEDS: FOLIC ACID PO SCH (08:34)
[2016-08-04] MEDS: NICODERM PATCH TD SCH (08:35)
--- NOTE | 2016-08-04 12:33 | PROGRESS NOTE ---
DATE: 08/04/2016 SUBJECTIVE: Pain in both feet but feels a little bit better overall. OBJECTIVE: Vital signs: Temperature is 98.6 degrees, pulse 92, blood pressure 123/35, oxygen saturation 100% on room air. General: He is alert, in no acute distress. HEENT: There is no scleral icterus. Cardiovascular: Normal rate. Regular rhythm. Extremities: His lower extremity exam, there is a new necrotic wound involving the medial aspect of his left foot overlying the 1st and 2nd metatarsals. This significantly worse than previously with some cellulitis of his foot and edema. His right heel has some purulent drainage from the wound over his heel and some macerated tissue here. Callus on the plantar aspect that is stable. Otherwise his feet feel reasonably well perfused, although it is difficult to palpate a pulse in both feet given the swelling. LABORATORY: White count is 18, hematocrit 24. Creatinine is 1.0, glucose 143. He has diminished KENDRA on the left, overall maintained on the right, and evidence of SFA occlusion on the left side; this appears new. ASSESSMENT AND PLAN: This is a 56-year-old male with a history of diabetic foot ulcers, noncompliance with therapy as an outpatient. He has been followed by me for several months at the wound clinic. At one point the left ulcer was completely healed and now it is significantly worse in a relatively short period of time. I suspect the possibility of an acute process with an SFA occlusion in the setting of chronic peripheral vascular disease. Continue local wound care. I have discussed risks, benefits, and alternatives with the patient and he consents to debridement. There is evidence of osteomyelitis here and he will need long-term antibiotics with PICC line. Dr. Juárez is following him as well. Appreciate his help. We will go to the operating room to debride today both foot wounds. Talked to Dr. colin and he is making plans for possible atherectomy this week as well to optimize perfusion to the left lower extremity. But in the meantime, will go today for debridement of these wounds. He seems to be on adequate antibiotics at this point. He is bacteremic with MRSA. He has a history of a superficial venous thrombosis and a deep venous thrombosis, asymptomatic in the right lower extremity and he is anticoagulated for this. We will resume his anticoagulation postoperatively. cc: Jailyn Geronimo MD
[2016-08-04] MEDS ORDERED: MARCAINE 0.25% PF ONE (15:24)
[2016-08-04] MEDS ORDERED: DIPRIVAN 1% ONE (17:20)
[2016-08-04] MEDS: DILAUDID ONE ×2 (17:43→17:45)
[2016-08-04] MEDS ORDERED: DILAUDID ONE (17:47)
--- NOTE | 2016-08-04 17:49 | PROGRESS NOTE ---
DATE: 08/04/2016 SUBJECTIVE: Patient complaining of mild to moderate pain in the right foot but denies any other complaints. OBJECTIVE: Vital Signs: Temperature 98 degrees, heart rate 111, respiratory rate 16, blood pressure 106/71, O2 saturation 100% on room air. General: This is a 56-year-old male, lying in bed, in no acute distress. HEENT: Head is normocephalic, atraumatic. Anicteric sclerae and pale conjunctivae. Mucous membranes moist. Neck: Supple. No jugular venous distention noted. No carotid bruits. Cardiovascular: S1, S2 heard. No murmurs, gallops, or rubs. Regular rate and rhythm. Respiratory: Clear bilaterally to auscultation. No work of breathing or using accessory muscles. Abdomen: Soft, nontender to palpation. Bowel sounds present. No organomegaly. Extremities: Both lower extremities wrapped in a dry and clean dressing. Neurological: Patient alert and oriented x3. Able to move 4 extremities. Cranial nerves 2-12 grossly normal. LABORATORY DATA: White cell count 18.22, hemoglobin 7.8, hematocrit 24.7, platelets 480,000. Basic metabolic panel unremarkable except glucose 143. ASSESSMENT/PLAN: 1. Methicillin-resistant Staphylococcus aureus infection of both lower extremities. Patient currently is on vancomycin. Infectious Disease Dr. Juárez is following this patient. Also, Dr. Geronimo from General Surgery is following as well and he is planning to take this patient to OR this morning for debridement of the leg because it got worse relatively quickly. 2. Methicillin-resistant Staphylococcus aureus bacteremia. We will continue with vancomycin and because of possible infection with possible endocarditis, we are going to order 2D echocardiogram. 3. Anemia. Patient has received 1 unit of blood and basically the hemoglobin has not been changed too much, so after surgery we may probably need to transfuse 1 or 2 units of blood. 4. Uncontrolled diabetes mellitus. Patient is on Levemir and sliding scale insulin and blood sugars are under control. 5. Folate deficiency. Patient is on folate supplementation. 6. History of deep venous thrombosis. Xarelto is on hold for the surgery and is going to be resume after surgery. 7. Tobacco abuse. We will continue with NicoDerm patch. 8. Hyponatremia. The sodium is normal today. We will continue with the same management. 9. Gastrointestinal prophylaxis with Protonix. cc: Carlos Elaine MD
[2016-08-04] MEDS: LEVEMIR SUBQ SCH (21:24)
[2016-08-04] MEDS: ZOCOR PO SCH (21:25)
--- NOTE | 2016-08-05 00:15 | PROGRESS NOTE ---
DATE: 08/04/2016 SUBJECTIVE: Patient is status post debridement of his left foot. Anticoagulation has been temporarily interrupted. He has converted back to atrial fibrillation, with mild increase in heart rate. He denies any chest discomfort or dyspnea. OBJECTIVE: Vital Signs: Blood pressure 107/65, heart rate 99-110 and irregular. Neck: There is no significant jugular venous distention. Chest: Clear to auscultation. Cardiac: An irregular rate and rhythm, without appreciable murmur or gallop. Echocardiography is technically difficult. Normal left ventricular systolic function evident. There is mild tricuspid regurgitation and trace mitral regurgitation. IMPRESSION: 1. Intermittent atrial fibrillation. 2. Diabetes mellitus. 3. Right heel ulcer, with methicillin-resistant Staph aureus infection and associated osteomyelitis. 4. Hypertension. 5. Hyperlipidemia. RECOMMENDATIONS: 1. Adjust metoprolol upward to facilitate discontinuation of diltiazem. 2. Resume anticoagulation when permitted from a surgical standpoint. 3. Consider use of either angiotensin converting enzyme inhibitor or angiotensin receptor blocking agent. cc: Mitch Blanchard MD
[2016-08-05] MEDS: NORCO-7.5 PO PRN ×2 (02:14→08:11)
[2016-08-05] MEDS: LOPRESSOR PO SCH ×5 (02:15→20:19)
--- NOTE | 2016-08-05 04:11 | OPERATIVE NOTE ---
PROCEDURE DATE: 08/04/2016 PREOPERATIVE DIAGNOSIS: Infected bilateral diabetic feet wounds with osteomyelitis. POSTOPERATIVE DIAGNOSIS: Infected bilateral diabetic feet wounds with osteomyelitis. PROCEDURE PERFORMED: 1. Excisional debridement of left 1st metatarsal wound, down to level and including bone, with 8 x 8 cm dimension. 2. Debridement of right calcaneal wound, 8 x 9 cm, down to the level and including the calcaneus bone. ESTIMATED BLOOD LOSS: 50 mL. SPECIMENS: 1. Excisional debridement tissue from the left 1st metatarsal. 2. Excisional debridement tissue of the right calcaneus tissue. 3. Calcaneal bone for culture. ANESTHESIA: General. INDICATIONS: This is a 56-year-old male with a chronic diabetic foot wounds bilaterally, who has been followed as an outpatient. He has a history of medical noncompliance, who wears ill-fiitting shoes despite recommendations, who presents with worsening of his wounds bilaterally. He was found have diminished ABIs on the left with what appears to be acute on chronic SFA occlusion on the left, but does have runoff to the foot and worsening over chronic wound on the left foot. On the right, he also has purulence and worsening wound on his right calcaneus, with x-ray consistent with osteomyelitis in both positions. OPERATIVE FINDINGS: There was exposed the first metatarsal bone. He has a previous history of digital amputation across the left foot. There was necrosis involving up to the midportion of the metatarsal head on the left, with purulence tracking along the subcutaneous tissue up to the level ankle. On the right side there was a large calcaneal wound with significant moth-eaten appearance of the calcaneus and evidence of pathologic fracture here, with purulence extending medially towards the medial malleolus and proximally up the tract to the Achilles. Appeared to be adequate blood supply on the right. The left did appear to have diminished bleeding noted. OPERATIVE NOTE: Operative risks, benefits, and alternatives were discussed with the patient. He consented to excisional debridement. We also discussed about the possibility progressing towards amputation in the future and he understands. Most surgical sites were marked in the preoperative area. He was taken operative room, placed in supine position. General anesthesia was induced. His previous dressings were removed. He was on scheduled antibiotics and these were confirmed. His bilateral feet were prepped Betadine solution and draped in the usual fashion. After time-out was performed between nursing, surgical, and anesthesia staff, an elliptical incision around the necrotic tissue of the left foot was made down to the level of metatarsal bone of the 1st metatarsal bone. We excised this with a bone cutter and debrided this back to more healthy appearing bone. The bone distally was very moth-eaten. There is also some pus noted more dorsally in the foot that tunneled proximally. This was able to be expressed out. The skin overlying seemed to be viable. Made a counter incision and threaded a Zeynep drain through this to help facilitate drainage of this. Hemostasis was obtained. We then turned attention the right posterior heel. Excised out elliptical incision. The bone underneath this was obvious crepitance here, consistent with pathologic fracture. We open this space down to the periosteum and there was pus noted. We debrided the calcaneus, which was artery fractured, quite moth-eaten back to more normal appearing, even then though this was quite soft. This seem to track medially in the malleolus. We made a counter incision and opened this as well and debrided back all necrotic tissue and drained any areas of pus. After this, we obtained hemostasis. We packed both wounds with Betadine gauze and wrapped with Kerlix and a loose Severo wrap. Tolerated this well. There was no identified complications. No family was available to discuss patient. I anticipate he will need more debridement and ultimately amputation both of these wounds. Does have plan for revascularization of left lower extremity by Dr. Merino tomorrow. We will continue follow along. Counts correct x2. cc: Jailyn Geronimo MD [facility]
[2016-08-05 06:01] LABS: AGAP 11; BUN 17 mg/dL (8-22); CALCIUM 7.9 mg/dL (8.8-10.2); CHLORIDE 95 mmol/L (98-107); COSMO 267; POTASSIUM 4.6 mmol/L (3.5-5.1); SODIUM 130 mmol/L (136-145); TCO2 24 mmol/L (25-35)
[2016-08-05] MEDS: HUMULIN R SUBQ SCH ×4 (06:33→20:09)
[2016-08-05] MEDS: PRILOSEC PO SCH (06:34)
--- NOTE | 2016-08-05 07:22 | PROGRESS NOTE ---
DATE: 08/05/2016 PRESENT ILLNESS: The patient has a methicillin-resistant chronic osteomyelitis of both feet. There is an associated bacteremia as well. MEDICATIONS: The patient is receiving vancomycin as a single agent. PHYSICAL EXAMINATION: Vital Signs: Temperature is 99.4 degrees, pulse 94, respirations 16, blood pressure 125/62. Generally: This is an ill-appearing middle-aged male. He is in no acute distress. Lungs: Clear to auscultation. Cardiovascular: Regular heart rate. Abdomen: Soft and nontender. Extremities: Both feet have dressings around them. The dressings are intact. LAB AND X-RAY: The patient's creatinine is 1.1. GFR is greater than 60. Blood cultures and cultures from the patient's feet taken at surgery are pending. ASSESSMENT AND PLAN: For right now, I am going to continue with vancomycin as a single agent. It is noted in Dr. Geronimo's operative note that his debridement went down to the bone in both feet. Therefore, the patient will be treated with vancomycin for a total of 8 weeks because the patient has a methicillin-resistant Staphylococcus aureus osteomyelitis. COMORBIDITIES: Include diabetes mellitus and cigarette smoking, peripheral vascular disease and medical noncompliance. cc: Sj Juárez MD
[2016-08-05] MEDS: DILAUDID ONE ×3 (08:06→15:58)
[2016-08-05] MEDS: NICODERM PATCH TD SCH (08:12)
[2016-08-05] MEDS: FOLIC ACID PO SCH (08:12)
[2016-08-05] MEDS ORDERED: MORPHINE IV PRN (08:39)
[2016-08-05] MEDS ORDERED: SAMSCA PO ONE (08:41)
[2016-08-05 08:55] LABS: MANUAL DIFF NEEDED? NO
[2016-08-05 08:57] LABS: BASO% 0.2 % (0.0-0.8); EOS# 0.07 X1000 (0.0-0.7); EOS% 0.5 % (0.0-10.0); HEMATOCRIT 22.6 % (42.0-52.0); HEMOGLOBIN 6.9 g/dL (14.0-18.0); IMM GRAN# 0.23 X1000 (0.0-0.04); IMM GRAN% 1.7 % (0.0-0.5); LYMPH# 1.48 X1000 (1.2-3.4); MCH 28.8 PG (27-31); MCHC 30.5 g/dL (33-37); MCV 94.2 FL (81-99); MONO# 1.26 X1000 (0.11-0.59); MONO% 9.4 % (1.7-9.3); MPV 10.3 FL (7.4-10.4); NEUT% 77.2 % (42.2-75.2); PLT 446 X1000 (130-400)
[2016-08-05] MEDS: MORPHINE IV PRN ×3 (09:32→22:14)
[2016-08-05] MEDS ORDERED: XYLOCAINE-MPF 2% ONE ×2 (09:56→15:53)
[2016-08-05] MEDS ORDERED: LR 1,000 ML ONE ×2 (09:56→15:53)
[2016-08-05] MEDS ORDERED: NEO-SYNEPHRINE ONE (09:56)
[2016-08-05] MEDS ORDERED: STERILE WATER INJ. ONE (09:56)
[2016-08-05] MEDS ORDERED: ZOFRAN ONE (09:56)
[2016-08-05] MEDS ORDERED: HEPARIN ONE ×3 (11:40→11:53)
[2016-08-05] MEDS ORDERED: NS 2,000 ML ONE (11:41)
[2016-08-05] MEDS ORDERED: MARCAINE 0.25% PF ONE ×2 (12:45)
[2016-08-05] MEDS ORDERED: SODIUM CHLORIDE 0.9% ONE (12:45)
[2016-08-05] MEDS ORDERED: EXPAREL 1.3% ONE (12:46)
--- NOTE | 2016-08-05 13:36 | PROGRESS NOTE ---
DATE: 08/05/2016 SUBJECTIVE: Pain in his left foot. The right foot feels okay. He is quite frustrated. He is n.p.o. for surgery today. He states that he is not having surgery tomorrow despite any recommendations because he wants to drink water all day. OBJECTIVE: Vital Signs: Temperature is 98.8 degrees; no fevers overnight. Pulse 92, blood pressure 127/97, oxygen saturation 99% on room air. General: He is alert, no acute distress. Cardiovascular: Normal rate, regular rhythm. Integument: Otherwise warm and dry. His dressings have some slight drainage from bilateral wounds; most of this appears to be Betadine. LABS: White count is down at 13, hematocrit 22, creatinine is 1.1. Sodium is 130, glucose 191. ASSESSMENT/PLAN: A 56-year-old male with severe infected bilateral diabetic wounds, superficial femoral artery occlusion on the left and osteomyelitis. Strong history of medical noncompliance in past with recommendations and activity restrictions. He continues to dictate his care here. Removed his telemetry, refusing any surgery tomorrow, although this has not been recommended at this point. He is giving the nurse quite a bit of trouble. We had a long discussion today about his prognosis. I think with revascularization of the left side, the left wound will ultimately heal, although this will be a prolonged process. He did have quite a lot of pus extending proximally in the foot, and this is quite a guarded situation as far as the left foot goes. He has already had amputation of all the toes on his foot previously and developed prolonged healing of the wound there as well. On the right side, this is a much bigger surgical issue. [place] like we got good source control yesterday, however the calcaneus was significantly involved with a pathologic fracture here and significant moth-eaten changes consistent with osteomyelitis. Very poor bone quality here and a large wound. This is going to be very difficult to heal with normal function of this foot, but I do think we have adequate drainage of any purulence and debridement of any necrotic tissue here, but this is going to be a complicated wound to heal, and I think ultimately progress to a below-knee amputation on the right. He is on adequate antibiotics. I appreciate Dr. Juárez and the medicine services assistance with him. Blood sugars were reasonably controlled, although still high. We will continue to follow along. I have talked extensively about him. Will evaluate him today at the bedside with her for plans for possible wound VAC placement in the future. As far as social work planning, I think he is going to need rehabilitation facility. He is now down on both of his lower extremities; he will need to be strict nonweightbearing in the right lower extremity at least, if not bilateral. cc: Jailyn Geronimo MD
[2016-08-05 14:57] LABS: URINE SOURCE CATH
[2016-08-05 15:09] LABS: BILIRUBIN URINE NEGATIVE (NEGATIVE); BLOOD URINE NEGATIVE (NEGATIVE); COLOR YELLOW; GLUCOSE URINE NEGATIVE (NEGATIVE); LEUKOCYTES URINE NEGATIVE (NEGATIVE); NITRITE URINE NEGATIVE (NEGATIVE); PROTEIN URINE TRACE mg/dL (NEGATIVE); SP GRAVITY URINE 1.005; TURBIDITY URINE CLEAR (CLEAR); URINE MICRO REVIEW NEEDED? YES; UROBILINOGEN URINE NORMAL (NORMAL)
[2016-08-05] MEDS ORDERED: VERSED ONE (15:09)
[2016-08-05] MEDS ORDERED: FENTANYL ONE (15:09)
--- NOTE | 2016-08-05 15:09 | PROGRESS NOTE ---
DATE: 08/05/2016 SUBJECTIVE: Patient reports still complaining of excruciating pain in the right leg and denies any fever or chills. OBJECTIVE: Vitals: Temperature 98.4 degrees, heart rate 96, respiratory rate 16, blood pressure 101/70, O2 saturation 99% on room air. General examination: This is a 56-year-old male, lying in bed in no acute distress. HEENT: Head is normocephalic, atraumatic. Anicteric sclerae and pale conjunctivae. Mucous membranes moist. Neck: Supple. No JVD noted. No carotid bruits. No lymphadenopathy. No thyromegaly. Cardiovascular exam: S1, S2 heard. No murmurs, gallops, or rubs. Regular rate and rhythm. Respiratory exam: Clear bilaterally to auscultation. No work of breathing or using accessory muscles. Abdomen: Soft, nontender to palpation. Bowel sounds present. No organomegaly. Extremities: No clubbing, cyanosis in both lower extremities wrapped in a dry and clean dressing. Neurological exam: Patient alert and oriented x3. Able to move 4 extremities. Cranial nerves 2-12 grossly normal. LABORATORY DATA: White blood count is 13.43, hemoglobin 6.9, hematocrit 22.6, platelets 446. The BMP showed normal limits. ASSESSMENT: 1. 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 2. Methicillin-resistant Staphylococcus aureus bacteremia. 3. Anemia of chronic disease. 4. Uncontrolled diabetes mellitus. 5. Folate deficiency. 6. History of deep vein thrombosis. 7. Tobacco abuse. 8. Hyponatremia. PLAN: 1. The patient currently is on vancomycin for this osteomyelitis. Dr. Juárez is following this patient. He plans to continue with antibiotics for at least eight weeks. 2. For intermittent atrial fibrillation, the patient is on metoprolol and diltiazem has been discontinued by cardiology. 3. For anemia, the patient has received 2 units of blood. 4. For uncontrolled diabetes, patient is on Levemir. 5. For deep vein thrombosis, patient was consulted, the patient has been held on medication, and we are going to resume after surgery. 6. For tobacco abuse, we will continue with NicoDerm patch. 7. For hyponatremia, will try Samsca. 8. Patient taking. cc: Carlos Elaine MD
[2016-08-05] MEDS ORDERED: DIPRIVAN 1% ONE (15:10)
[2016-08-05 15:18] LABS: UR EPITHELIAL CELLS <10 /HPF (<10); URINE BACTERIA NEGATIVE /HPF; URINE WBC <10 /HPF (<10)
[2016-08-05 15:24] LABS: URINE CASTS NONE SEEN
[2016-08-05] MEDS ORDERED: ROBINUL ONE (15:53)
[2016-08-05] MEDS ORDERED: ANESTHESIA PB SET 88 IN 5742 ONE (15:53)
[2016-08-05] MEDS ORDERED: BLOOD SET Y-TYPE 8949 ONE (15:53)
[2016-08-05] MEDS ORDERED: NS 1,000 ML ONE (15:53)
[2016-08-05] MEDS ORDERED: DILAUDID ONE (16:06)
[2016-08-05] MEDS: VANCOMYCIN 2,250 MG in NS 500 ML IV SCH (17:43)
--- NOTE | 2016-08-05 17:49 | OPERATIVE NOTE ---
PROCEDURE DATE: 08/05/2016 PROCEDURE: 1. Left femoral artery access with ultrasound guidance, antegrade approach. 2. Percutaneous left superficial femoral artery atherectomy using an H1-LS catheter. 3. Drug-coated balloon angioplasty using a 5 x 120 Impact balloon. SURGEON: Delgado Merino MD. MANUFACTURING INDUSTRIAL ENGINEER: Sarahy Bah RN. PREOPERATIVE DIAGNOSIS: Diabetic foot infection with left superficial femoral artery occlusion. POSTOPERATIVE DIAGNOSIS: Diabetic foot infection with left superficial femoral artery occlusion. The occlusion measured about 7 cm in the mid superficial femoral artery. DETAILS OF OPERATION: Satisfactory general anesthesia was achieved. The right groin, left groin and left leg were prepped and draped in a sterile fashion. We retracted the panniculus cephalad. We imaged the left groin, identified left femoral artery. We made a small stab incision, and approached the artery antegrade approach and entered the artery and passed the wire into the SFA. We proved this to be appropriately placed by fluoroscopy. A 7-[place] sheath was then placed. We gave the patient 8000 units of heparin systemically. We shot an arteriogram and this revealed an occlusion in the mid SFA for about 7 cm. We passed the Glidewire across the occlusion without difficulty. We then advanced a 5-[place] straight sheath catheter over the wire, passed the occlusion and switched out to an 0.014 Nitrex wire. We then obtained an H1-LS atherectomy catheter and treated the lesion, really for about 10-11 cm. Completion revealed resolution of the occlusion with inline flow. We then chose a 5 x 120 Impact balloon that is impregnated with paclitaxel. We then placed it appropriately across the atherectomized vessel and inflated it for 3 minutes to 8 atmospheres, which was nominal dilatation. After that was completed, we then shot a completion arteriogram again showing very satisfactory inline flow with a normal caliber vessel. We were pleased with our results. We then removed the balloon and wire. We obtained a Mynx closure plug and positioned it to the artery and deployed it as directed. After the plug was deployed, we held pressure for 3 minutes and applied a pressure bandage. He tolerated the procedure satisfactorily and was sent to the recovery room in satisfactory condition. We used 68 mL of contrast. He tolerated it well. cc: Delgado Merino MD
[2016-08-05] MEDS: NORCO-10 PO PRN (20:07)
[2016-08-05] MEDS: LEVEMIR SUBQ SCH (20:09)
[2016-08-05] MEDS: ZOCOR PO SCH (20:09)
[2016-08-06] MEDS: MORPHINE IV PRN ×5 (02:41→23:43)
[2016-08-06] MEDS: LOPRESSOR PO SCH ×4 (02:44→19:57)
[2016-08-06 05:11] LABS: MANUAL DIFF NEEDED? NO
[2016-08-06 05:24] LABS: BASO% 0.2 % (0.0-0.8); EOS# 0.03 X1000 (0.0-0.7); EOS% 0.3 % (0.0-10.0); HEMATOCRIT 28.8 % (42.0-52.0); HEMOGLOBIN 8.9 g/dL (14.0-18.0); IMM GRAN% 1.7 % (0.0-0.5); LYMPH# 1.13 X1000 (1.2-3.4); LYMPH% 9.6 % (20.5-51.1); MCH 28.8 PG (27-31); MCHC 30.9 g/dL (33-37); MCV 93.2 FL (81-99); MONO# 0.98 X1000 (0.11-0.59); MONO% 8.3 % (1.7-9.3); MPV 9.7 FL (7.4-10.4); NEUT% 79.9 % (42.2-75.2); PLT 457 X1000 (130-400); RBC 3.09 XMIL (4.7-6.1)
[2016-08-06 05:44] LABS: AGAP 12; BUN 14 mg/dL (8-22); CALCIUM 8.2 mg/dL (8.8-10.2); CHLORIDE 98 mmol/L (98-107); COSMO 276; POTASSIUM 4.6 mmol/L (3.5-5.1); SODIUM 136 mmol/L (136-145); TCO2 26 mmol/L (25-35)
[2016-08-06] MEDS: HUMULIN R SUBQ SCH ×5 (06:42→22:55)
[2016-08-06] MEDS: PRILOSEC PO SCH (06:42)
--- NOTE | 2016-08-06 07:39 | PROGRESS NOTE ---
DATE: 08/06/2016 PRESENT ILLNESS: The patient has methicillin-resistant Staph aureus infection of both feet with involvement of the bone. Yesterday the patient underwent left femoral artery atherectomy and angioplasty. One of 2 repeat blood cultures on the patient are growing gram positive cocci. MEDICATIONS: The patient is on vancomycin as a single agent. PHYSICAL EXAMINATION: Vital Signs: Temperature is 97.7 degrees, pulse 113, respirations 20, blood pressure 126/60. General: This is a somewhat ill-appearing, obese, middle-aged male who is in no acute distress. Eyes and ears: He can see near objects. He can hear my spoken words. Lungs: Clear to auscultation. Cardiovascular: Regular heart rate. Abdomen: Soft and nontender. There is a dressing over the lower part of his abdomen involving the groin area where Dr. Merino did his vascular surgery yesterday. LAB AND X-RAY: There is no new x-ray. The lab for today, the patient has a CBC with a white count of 11,750, hemoglobin 8.9, and platelet count 457,000. Creatinine is 1.0, GFR is greater than 60. One of 2 repeat blood cultures are growing gram-positive cocci. ASSESSMENT AND PLAN: The patient has methicillin-resistant Staph aureus infection of both feet with bony involvement. He also has a bacteremia. For now, I am going to continue with vancomycin as a single agent. The patient's comorbidities include diabetes mellitus, cigarette smoking, and peripheral vascular disease. cc: Sj Juárez MD
[2016-08-06] MEDS: NICODERM PATCH TD SCH (08:36)
[2016-08-06] MEDS: FOLIC ACID PO SCH (08:39)
[2016-08-06] MEDS: PLAVIX PO SCH (08:39)
[2016-08-06] MEDS: NORCO-10 PO PRN ×2 (08:40→22:22)
--- NOTE | 2016-08-06 09:52 | PROGRESS NOTE ---
DATE: 08/06/2016 SUBJECTIVE: Patient is still complaining of pain in the right leg. He denies any fever or chills. OBJECTIVE: Vital Signs: Temperature 98.7 degrees, heart rate 105, respiratory rate 16, blood pressure 134/72, O2 saturation 99% on room air. General Examination: This is a 56-year-old, male, lying in bed, in no acute distress. HEENT: Head is normocephalic and atraumatic. Anicteric sclerae and pale conjunctivae. Mucous membranes moist. Neck: Supple. No JVD noted. No carotid bruits. No lymphadenopathy. No thyromegaly. Cardiovascular Examination: S1 and S2 heard. No murmurs, gallops, or rubs. Regular rate and rhythm. Respiratory Examination: Clear bilaterally to auscultation. No work of breathing or using accessory muscles. Abdomen: Soft, nontender to palpation. Bowel sounds present. No organomegaly. Extremities: No clubbing, cyanosis, or edema. Both lower extremities are wrapped in dry and clean dressings. Neurological Examination: Patient is alert and oriented x3. Able to move 4 extremities. Cranial nerves 2-12 are grossly normal. Laboratory Data: White cell count 11.75, hemoglobin 8.9, hematocrit 28.8, platelets 457,000. BMP unremarkable except glucose 169. ASSESSMENT: 1. Severe bilateral diabetic wounds. 2. Superficial femoral arterial occlusion, status post atherectomy and angioplasty. 3. 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 4. Methicillin-resistant Staphylococcus aureus bacteremia. 5. Anemia of chronic disease. 6. Uncontrolled diabetes mellitus. 7. Folate deficiency. 8. History of deep venous thrombosis. 9. Tobacco use. PLAN: 1. The patient is being followed by Dr. Geronimo from general surgery regarding the bilateral wounds in both lower extremities. Also, he underwent atherectomy and angioplasty of left femoral artery as per Dr. Merino. Patient is doing fine other than, of course, complaining of mild to moderate pain in both lower extremities. Dr. Juárez is also following this patient regarding management antibiotics and he recommends to continue with vancomycin for at least 8 weeks. In that regard, the patient has been offered the possibility of going to rehabilitation or going to long-term acute care in order to get that 8 weeks of antibiotics given. Patient refused to go anywhere and he preferred to go home but unfortunately, it seems that antibiotics will not be paid if patient decides to go home. mental health social worker and correctional casework specialist involved in the case. 2. For uncontrolled diabetes mellitus, we are going to continue with the sliding scale insulin and glucose definitely between 150s and 180s all the time. We will continue with the same management. 3. For folate deficiency, patient is receiving folate supplementation. 4. For history of DVT, patient was on Xarelto but this medication was withheld for those surgeries and can be restarted at the discretion of the general surgeon following this patient. 5. For tobacco abuse, patient has been counseled to stop smoking. 6. For hyponatremia, the sodium today is 136 so that condition is completely resolved. cc: Carlos Elaine MD
[2016-08-06] MEDS: VANCOMYCIN 2,250 MG in NS 500 ML IV SCH (11:21)
[2016-08-06] MEDS: LOVENOX SUBQ SCH (11:21)
--- NOTE | 2016-08-06 11:29 | PROGRESS NOTE ---
DATE: 08/06/2016 SUBJECTIVE: Generally disgruntled, had some pain in his bilateral feet overnight. OBJECTIVE: Vital Signs: No fevers. Pulse 105, blood pressure 134/72, oxygen saturation 99% on room air. General: He is alert, in no acute distress. Extremities/Skin: Bilateral dressings on his feet are intact. There is some serosanguineous-appearing drainage. I do not see any worsening of cellulitis extending up the leg. Left groin is flat without any evidence of hematoma, and integument is warm and dry. LABORATORY DATA: I reviewed his labs. White count is down to 11, hematocrit 28. Creatinine is 1 and glucose is 169. ASSESSMENT AND PLAN: This is a 56-year-old male with severe methicillin- resistant Staphylococcus aureus infection of his bilateral feet. On the left, he has had previous amputations of all of his toes and developed a necrotic infection of his medial aspect of his foot thinning back the metatarsal. He underwent revascularization of the superficial femoral artery occlusion by Dr. Merino yesterday and had an atherectomy and stent placement with good results. We will continue to monitor him because I suspect he is going to need more debridement, at least on the right, if not on the left. We will continue antibiotics. He is on adequate right now, being treated with vancomycin for his methicillin-resistant Staphylococcus aureus in his wound, and Dr. Juárez is following and managing this. We will continue to follow along. I suspect he will need to be in-house here for multiple issues, wound care, further debridements, and antibiotics for the next several days. We will continue to follow along. cc: MD DUSTY Lopez
--- NOTE | 2016-08-06 19:35 | PROGRESS NOTE ---
DATE: 08/06/2016 SUBJECTIVE: Patient underwent left femoral artery atherectomy and angioplasty yesterday. He continues on intravenous vancomycin. He denies any chest discomfort or dyspnea. OBJECTIVE: Vital signs: Blood pressure 127/69, heart rate 72 and regular, with ECG monitor showing sinus rhythm. Chest: Clear to auscultation. Cardiac: A regular rate and rhythm without appreciable murmur or gallop. IMPRESSION: 1. Intermittent atrial fibrillation. Patient continues in sinus rhythm. 2. Foot infection with methicillin-resistant Staph aureus and associated osteomyelitis as well as bacteremia. 3. Diabetes mellitus. 4. Hypertension. 5. Peripheral vascular disease. 6. Hyperlipidemia. RECOMMENDATIONS: We will continue current cardiovascular regimen unchanged. We will pursue rate control and anticoagulation for now. cc: Mitch Blanchard MD
[2016-08-06] MEDS: ZOCOR PO SCH ×2 (19:57→22:23)
[2016-08-06] MEDS: LEVEMIR SUBQ SCH ×2 (19:58→22:55)
[2016-08-06] MEDS ORDERED: AYR NASAL SPRAY NAS PRN (23:13)
[2016-08-07] MEDS: MORPHINE IV PRN ×5 (03:13→20:06)
[2016-08-07] MEDS: LOPRESSOR PO SCH ×4 (03:14→20:06)
[2016-08-07] MEDS: VANCOMYCIN 2,250 MG in NS 500 ML IV SCH (05:05)
[2016-08-07 05:23] LABS: MANUAL DIFF NEEDED? NO
[2016-08-07 05:28] LABS: BASO% 0.2 % (0.0-0.8); EOS# 0.06 X1000 (0.0-0.7); EOS% 0.7 % (0.0-10.0); HEMATOCRIT 27.1 % (42.0-52.0); HEMOGLOBIN 8.4 g/dL (14.0-18.0); IMM GRAN# 0.21 X1000 (0.0-0.04); IMM GRAN% 2.4 % (0.0-0.5); LYMPH# 1.57 X1000 (1.2-3.4); LYMPH% 18.2 % (20.5-51.1); MCH 29.1 PG (27-31); MCV 93.8 FL (81-99); MONO# 0.79 X1000 (0.11-0.59); MONO% 9.1 % (1.7-9.3); MPV 9.3 FL (7.4-10.4); NEUT% 69.4 % (42.2-75.2); PLT 415 X1000 (130-400); RBC 2.89 XMIL (4.7-6.1)
[2016-08-07 06:00] LABS: AGAP 11; BUN 17 mg/dL (8-22); CALCIUM 8.2 mg/dL (8.8-10.2); CHLORIDE 100 mmol/L (98-107); COSMO 278; POTASSIUM 3.9 mmol/L (3.5-5.1); SODIUM 137 mmol/L (136-145); TCO2 26 mmol/L (25-35)
--- NOTE | 2016-08-07 08:23 | PROGRESS NOTE ---
DATE: 08/07/2016 PRESENT ILLNESS: The patient has a methicillin-resistant Staphylococcus aureus infection of both feet with involvement of bone. He underwent surgery yesterday on the left femoral artery consisting of an atherectomy and angioplasty. He had 2 repeat blood cultures, 1 of which is growing methicillin-resistant Staphylococcus aureus. MEDICATIONS: The patient is on vancomycin as a single agent. PHYSICAL EXAMINATION: Vital Signs: Temperature is 97.6 degrees, pulse 71, respirations 18, blood pressure 162/72. General: This is a somewhat ill-appearing, middle-aged male. He is in no acute distress. Lungs: Clear to auscultation. Cardiovascular: Heart rate is regular. Abdomen: Soft and nontender. Extremities: Both feet have dressings on them. The dressings are intact. LAB AND X-RAY: The patient's CBC today has a white count of 8650, hemoglobin 8.4, and the platelet count is 415,000. The patient's creatinine is 0.9. The GFR is greater than 60. The patient had 2 repeat blood cultures, 1 of which is growing methicillin-resistant Staphylococcus aureus. ASSESSMENT AND PLAN: Since the patient's repeat blood culture is positive for methicillin- resistant Staphylococcus and since the patient's echocardiogram study done earlier was not a good study in that the valves could not be seen well, I discussed with Dr. Blanchard proceeding with a transesophageal echocardiogram. Dr. Blanchard agreed to this. I also talked to the patient about doing the transesophageal echocardiogram he is agreeable to it also. I will be continuing vancomycin and today I have ordered repeat blood cultures. COMORBIDITIES: Diabetes mellitus, cigarette smoking, and peripheral vascular disease. cc: Sj Juárez MD
[2016-08-07] MEDS: HUMULIN R SUBQ SCH ×4 (09:39→21:37)
[2016-08-07] MEDS: NICODERM PATCH TD SCH (09:40)
[2016-08-07] MEDS: PLAVIX PO SCH (09:41)
[2016-08-07] MEDS: FOLIC ACID PO SCH (09:41)
[2016-08-07] MEDS: NORCO-10 PO PRN (09:49)
--- NOTE | 2016-08-07 11:47 | PROGRESS NOTE ---
DATE: 08/07/2016 SUBJECTIVE: Patient continues without chest symptoms. He has had 2 repeat blood cultures, one of which is growing methicillin-resistant Staphylococcus aureus. OBJECTIVE: Vital Signs: Blood pressure 143/75, heart rate 71, with monitor showing sinus rhythm. Chest: Clear to auscultation. Cardiac: Reveals a regular rate and rhythm, without appreciable murmur or gallop. DIAGNOSTIC TESTS: Echocardiography obtained this admission was technically difficult. There is mild tricuspid regurgitation, trace mitral regurgitation, normal left ventricular systolic function demonstrated. IMPRESSIONS: 1. Recurrent atrial arrhythmias. Patient continues in sinus rhythm. 2. Bilateral foot infection with Methicillin-resistant Staphylococcus aureus. Concerning that patient still has 1 of 2 blood cultures positive for Methicillin-resistant Staphylococcus aureus on therapy. RECOMMENDATION: Agree with Dr. Juárez that it would be prudent to further screen for possible endocarditis with transesophageal echocardiography. This was discussed with the patient and he agreed to proceed. Given patient's Methicillin-resistant Staphylococcus aureus, will need to consider either doing it in patient's room or as last case in cardiac catheterization laboratory. cc: Mitch Blanchard MD
[2016-08-07] MEDS: PRILOSEC PO SCH (12:36)
[2016-08-07] MEDS: LOVENOX SUBQ SCH (12:36)
--- NOTE | 2016-08-07 17:02 | PROGRESS NOTE ---
DATE: 08/07/2016 SUBJECTIVE: The patient is doing fine. Denies any complaints today. No fever or chills. OBJECTIVE: Vital Signs: Temperature 97.2 degrees, heart rate 78, respiratory rate 18, blood pressure 154/71, O2 saturation 99% on room air. General Examination: This is a 56-year-old male, lying in bed, in no acute distress. HEENT: Head is normocephalic, atraumatic. Anicteric sclerae and pale conjunctivae. Mucous membranes moist. Neck: Supple. No JVD noted. No carotid bruits. No lymphadenopathy. No thyromegaly. Cardiovascular: S1, S2 heard. No murmurs, gallops, or rubs. Regular rate and rhythm. Respiratory: Clear bilaterally to auscultation. No work of breathing or using accessory muscles. Abdomen: Soft, nontender to palpation. Bowel sounds present. No organomegaly. Extremity: No clubbing, cyanosis, or edema. Both lower extremities are wrapped with clean and dry dressing. Neurological: Patient is alert and oriented x3. Moves 4 extremities. LABORATORY DATA: Reviewed. ASSESSMENT AND PLAN: 1. Severe bilateral lower extremity diabetic wounds. 2. Superficial femoral arterial occlusion status post atherectomy and angioplasty. 3. MRSA osteomyelitis of both feet. 4. MRSA bacteremia. 5. Anemia of chronic disease. 6. Uncontrolled diabetes mellitus. 7. Folate deficiency. 8. History of DVT. 9. Tobacco abuse. PLAN: Patient is being followed by Dr. Geronimo and we talked with yesterday about the plan on this patient and this patient may need to have another surgical debridement of both lower extremities. Regarding revascularization Dr. Merino has also been following this patient as well. For osteomyelitis and MRSA infection we will continue with vancomycin. Dr. Juárez from Infectious Disease is following this patient. For uncontrolled diabetes mellitus patient is on sliding scale and definitely the blood sugars are better controlled. For history of DVT, patient has been on Xarelto and we plan to resume it when okay with General Surgery. Regarding placement, the patient reports that he really wants to go home and not going to any rehab facility. The patient advised that these medication coverage can cover his needs but he insists on going home to have antibiotics at home. In any case, we have documented that in the chart. We will see how this patient does. cc: Carlos Elaine MD
--- NOTE | 2016-08-07 18:04 | PROGRESS NOTE ---
DATE: 08/07/2016 SUBJECTIVE: Disgruntled with his current condition, but no real pain. OBJECTIVE: Vital signs: No fevers. Temperature was 98.1 degrees, pulse 71, blood pressure 143/75, oxygen saturation 95% on room air. General: He is alert. Integument: Otherwise warm and dry. Extremities: He has got dressings in place bilateral legs. His bilateral feet are warm well perfused. His left foot debridement site is granulating well. I do not see any evidence of ongoing purulent drainage or necrosis here. His right foot heel has developed some noninfected- appearing, but necrotic tissue anteriorly and there is exposed bone in the bed as noted before. LABORATORY: White count down to 8, normalize, hematocrit 27, creatinine 0.9 glucose 244. ASSESSMENT/PLAN: A 56-year-old male with severe infection bilateral lower extremities. He has now revascularized left lower extremity superficial femoral artery occlusion to optimize healing of this wound. Long discussion with the patient about the severity of his calcaneal osteomyelitis on the right and discussed this with Dr. Duarte, one of our foot specialists and he states that this is a grim prognosis and that he anticipates he will ultimately require below-knee amputation. I have talked to the patient about this as well. PLAN: We will go to the operating room tomorrow for further debridement and we will continue his IV antibiotics. Ultimately goal is to transition to wound VAC placement, and I will ask Dr. Duarte to evaluate the patient intraoperatively tomorrow and weigh in with a 2nd opinion regarding the likely progression of below-knee amputation on the right. I suspect the left will heal now that it has got adequate perfusion and it has been adequately debrided. We will continue to follow along with the patient. He still requires in-patient due to ongoing surgical debridements, IV antibiotics and difficult social situation at home. cc: Jailyn Geronimo MD
[2016-08-07] MEDS: ZOCOR PO SCH (20:06)
[2016-08-08] MEDS: LEVEMIR SUBQ SCH ×2 (02:55→20:49)
[2016-08-08] MEDS: VANCOMYCIN 2,250 MG in NS 500 ML IV SCH ×2 (02:56→10:52)
[2016-08-08] MEDS: LOPRESSOR PO SCH ×4 (03:23→20:49)
[2016-08-08] MEDS: MORPHINE IV PRN ×2 (05:07→20:48)
[2016-08-08 05:33] LABS: MANUAL DIFF NEEDED? NO
[2016-08-08 05:45] LABS: INR 1.06; PROTIME 11.2 Seconds (9.2-11.7)
[2016-08-08 05:47] LABS: BASO% 0.2 % (0.0-0.8); EOS# 0.04 X1000 (0.0-0.7); EOS% 0.4 % (0.0-10.0); HEMATOCRIT 31.6 % (42.0-52.0); HEMOGLOBIN 9.7 g/dL (14.0-18.0); IMM GRAN% 1.8 % (0.0-0.5); LYMPH# 1.96 X1000 (1.2-3.4); LYMPH% 18.1 % (20.5-51.1); MCH 28.9 PG (27-31); MCHC 30.7 g/dL (33-37); MONO# 0.85 X1000 (0.11-0.59); MONO% 7.9 % (1.7-9.3); MPV 9.4 FL (7.4-10.4); NEUT% 71.6 % (42.2-75.2); PLT 519 X1000 (130-400); RBC 3.36 XMIL (4.7-6.1)
[2016-08-08 05:53] LABS: AGAP 15; BUN 18 mg/dL (8-22); CALCIUM 8.5 mg/dL (8.8-10.2); CHLORIDE 96 mmol/L (98-107); COSMO 280; POTASSIUM 4.2 mmol/L (3.5-5.1); SODIUM 137 mmol/L (136-145); TCO2 26 mmol/L (25-35)
[2016-08-08] MEDS: HUMULIN R SUBQ SCH ×4 (06:14→20:50)
[2016-08-08] MEDS: PRILOSEC PO SCH (06:15)
[2016-08-08] MEDS ORDERED: VERSED ONE ×2 (08:22→13:16)
[2016-08-08] MEDS ORDERED: XYLOCAINE 4% TOPICAL SOLUTION ONE (08:23)
[2016-08-08] MEDS ORDERED: DEMEROL ONE (08:23)
[2016-08-08] MEDS: FOLIC ACID PO SCH (08:27)
--- NOTE | 2016-08-08 08:30 | PROGRESS NOTE ---
DATE: 08/08/2016 PRESENT ILLNESS: The patient is being treated for methicillin-resistant Staph aureus, osteomyelitis of both feet, as well as bacteremia. MEDICATIONS: The patient is on vancomycin as a single agent. PHYSICAL EXAMINATION: Vital Signs: Temperature is 98.2 degrees, pulse 73, respirations 14, blood pressure 154/69. General: This is a somewhat ill-appearing, middle-aged male. He is in no acute distress. Lungs: Clear to auscultation. Cardiovascular: Regular heart rate. I did not hear a murmur. Abdomen: Soft and nontender. Extremities: Both feet have dressings on them. There appears to be active bleeding in both wounds. LAB AND X-RAY: There is no new x-ray. The creatinine 0.9. GFR is greater than 60. Vancomycin level was 17.7. Repeat blood cultures are pending. CBC shows a white count 46871, hemoglobin 9.7, and platelet count 519,000. ASSESSMENT AND PLAN: The patient has osteomyelitis and bacteremia due to methicillin-resistant Staph aureus. He is scheduled to undergo a transesophageal echocardiogram to look for vegetations. My plan is to continue with vancomycin and he will be treated for 8 weeks following the first blood culture sets that stay negative. COMORBIDITIES: 1. Diabetes mellitus. 2. Cigarette smoking. 3. Peripheral vascular disease. cc: Sj Juárez MD
[2016-08-08] MEDS ORDERED: NS 1,000 ML ONE ×2 (08:41→13:19)
[2016-08-08] MEDS ORDERED: DIPRIVAN 1% ONE (09:56)
[2016-08-08] MEDS ORDERED: XYLOCAINE-MPF 2% ONE ×2 (10:27→13:19)
--- NOTE | 2016-08-08 10:52 | ECHO REPORT ---
ORDER DATE: 08/08/2016 PROCEDURE: Transesophageal echocardiogram to assess for and rule out endocarditis. DESCRIPTION OF PROCEDURE: Informed consent was obtained from the patient. Anesthesia was present. Following informed consent, his oropharynx was anesthetized using lidocaine swish and swallow and Cetacaine spray. The patient was sedated with Versed and propofol. Please see detailed anesthesia records. A transesophageal probe was easily passed through the esophagus and ultrasound pictures were obtained. FINDINGS: 1. Normal left ventricular cavity size. Estimated ejection fraction of 55% to 60%. 2. The mitral valve was normal. 3. The aortic valve leaflets were trileaflet. 4. The tricuspid valve was normal. 5. The pulmonic valve was mildly thickened. There was vegetation or a mobile mass noted measuring 0.8 cm which was noted in some views. There was no associated significant regurgitation. 6. Doppler studies revealed there was no aortic stenosis or regurgitation. There is trace tricuspid regurgitation, mild mitral regurgitation. 7. There is no pericardial effusion. 8. The ascending aorta was normal. 9. Descending aorta layered plaque noted. CONCLUSIONS: 1. There was a 0.8 cm mass noted in the pulmonic valve on the ventricular side, which was hazy. Not well visualized in all views, suggestive of vegetation. Not associated with any abscess. 2. Normal left ventricular cavity size, estimated ejection fraction of 55% to 60 %. cc: MD Coni Larose PA MTDD
--- NOTE | 2016-08-08 12:14 | PROGRESS NOTE ---
DATE: 08/08/2016 SUBJECTIVE: The patient is doing fine. Mild pain in both legs, but no fever or chills. OBJECTIVE: Vital Signs: Temperature 97.8, heart rate 67, respiratory rate 20, blood pressure 140/54, O2 saturation 100% on room air. General examination: This is a 56-year-old male, lying in bed in no acute distress. HEENT: Head is normocephalic, atraumatic. Anicteric sclerae and pale conjunctivae. Mucous membranes moist. Neck: Supple. No JVD noted. No carotid bruits. No lymphadenopathy. No thyromegaly. Cardiovascular exam: S1, S2 heard. No murmurs, gallops, or rubs. Regular rate and rhythm. Respiratory exam: Clear bilaterally to auscultation. No work of breathing or using accessory muscles. Abdomen: Soft, nontender to palpation. Bowel sounds present. No organomegaly. Extremities: No clubbing, cyanosis, or edema. Both lower extremities covered by dressing, dry and clean. Neurological: Patient moves 4 extremities. Alert and oriented x3. LABORATORY DATA: Reviewed. ASSESSMENT AND PLAN: 1. Severe bilateral lower extremity diabetic wounds. 2. 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 3. Methicillin-resistant Staphylococcus aureus bacteremia. 4. Superficial femoral arterial occlusion, status post atherectomy and angioplasty. 5. Anemia of chronic disease. 6. Uncontrolled diabetes mellitus. 7. Fall deficiency. 8. History of deep vein thrombosis. 9. Tobacco abuse. Patient is stable. Dr. Geronimo is planning another screening most probably today, and they have talked with Dr. Duarte, who is a [employer] [employer] footballer, about this patient. It looks like this patient will eventually need right [id number] amputation because of those chronic wound infections. For MRSA bacteremia and osteomyelitis, the patient is on vancomycin. The patient is being followed by Dr. Juárez of infectious disease and planning to complete 8 weeks of antibiotics. Because of this MRSA bacteremia, it was deemed necessary to perform a MARY to rule out any vegetation. Will see what that exam shows. For anemia of chronic disease, the hemoglobin is stable. For uncontrolled diabetes mellitus, the patient is on sliding scale insulin. Also, this patient had history DVT and he was on blood thinners. Will leave the decision to restart blood thinner medications to general surgery. cc: Carlos Elaine MD
[2016-08-08] MEDS ORDERED: FENTANYL ONE (13:16)
[2016-08-08] MEDS ORDERED: ANESTHESIA PB SET 88 IN 5742 ONE (13:19)
[2016-08-08] MEDS ORDERED: AMIDATE ONE (13:19)
[2016-08-08] MEDS ORDERED: EXTENSION SET 32 IN 4522 ONE (13:19)
[2016-08-08] MEDS: PLAVIX PO SCH (14:52)
[2016-08-08] MEDS: NICODERM PATCH TD SCH (14:53)
--- NOTE | 2016-08-08 14:53 | PROGRESS NOTE ---
DATE: 08/08/2016 SUBJECTIVE: Patient was seen preoperatively. No real pain in his feet. Otherwise doing okay. He is not happy about being NPO. Temperature is 97.8 degrees, pulse in the 60s to 70s. Blood pressure 140/54, oxygen saturation is 100% on room air.General: He is alert. Dressings have some serosanguineous and Betadine drainage bilaterally but otherwise appear well perfused. There is some cellulitis to the ankle left foot. White count is 10, hematocrit 31, creatinine 0.9. Glucose 184. Of note he did have a MARY that suggests a 0.8 cm mass on the pulmonic valve suggestive of vegetation. Ejection fraction was normal. ASSESSMENT/PLAN: 56-year-old male with severe bilateral MRSA diabetic foot infections. He is status post revascularization of left lower extremity. Risks, benefits and alternatives discussed with patient. I do think he needs further debridement today and evaluation of his wounds. We will ask Dr. Duarte to come in and evaluate his calcaneus on his right as well and will make further recommendations. I have had a long discussion with the patient about the possibility of requiring a below-knee amputation on the right. He understands but does not want to undergo this at this time. After debridement is adequate we will plan to transition to wound VAC. He is on appropriate antibiotics. Cardiology and hospitalists are following regarding this possibility of a vegetation on the pulmonic valve. It is possible that this could be the etiology of this acute onset of infection with seeding of these previously not infected chronic wounds but we will await their recommendations as far as needs going forward. Anticipated prolonged hospitalization regarding wound care, antibiotics and everything else he has got a going on and difficult social situation. cc: Jailyn Geronimo MD
[2016-08-08] MEDS: LOVENOX SUBQ SCH (14:54)
--- NOTE | 2016-08-08 16:37 | OPERATIVE NOTE ---
PROCEDURE DATE: 08/08/2016 DATE OF OPERATION: 08/08/2016. PREOPERATIVE DIAGNOSIS: Infected bilateral diabetic foot wounds. POSTOPERATIVE DIAGNOSIS: Infected bilateral diabetic foot wounds. PROCEDURES PERFORMED: 1. Excisional debridement of right heel wound. Dimensions were 13 x 5 cm with a depth of 4 cm down to and including debridement of calcaneal bone. 2. Excisional debridement of a left forefoot wound 10 x 8 x 5 cm; this included completion amputation of the first metatarsal bone on the left. ESTIMATED BLOOD LOSS: 25 mL. SPECIMENS: 1. Excisional debridement soft tissue and calcaneal bone of the right foot. 2. Excisional debridement with completion resection of the first metatarsal bone of the left. 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 He underwent excisional debridement for source control several days ago and now needs further excisional debridement to facilitate wound healing. OPERATIVE FINDINGS: There was some necrotic tissue surrounding the heel wound on the right. This extended down to the calcaneal bone. There was no gross purulence here. On the left there was ongoing purulent drainage from deep within the foot. A rim of necrotic tissue around the edge. The purulence extended down to and included the first metatarsal bone. This was disarticulated and removed facilitating drainage of the deep infection of the foot, but there is good perfusion and blood flow noted in both feet at the time of operation. An intraoperative consultation with Dr. Duarte with Orthopedics/Foot Surgery evaluated the wound on the right involving the calcaneus. He felt that there was significant involvement here, and the long-term function and potential for healing is very low, and he feels the patient will ultimately progress to below- knee amputation on the right in the future. OPERATIVE NOTE: Risks, benefits, alternatives discussed with the patient and he consented to the procedure. He was seen in the preoperative area. Surgery site was marked. He was receiving scheduled antibiotics. These are confirmed. He was taken to the operating room. General anesthesia induced without complication. Bilateral feet were prepped with Betadine and draped in usual fashion. Time-out performed. Using the 10 blade scalpel, we excised all necrotic tissue in the right heel wound, and then using a rongeur we debrided back the bone back to healthy-appearing bleeding bone. There are no un drained pockets of pus here. We then turned our attention to the left and, in similar fashion, using 10 blade scalpel excised all necrotic tissue. There was pus noted draining from the deep space of the foot. In the more superficial foot there was a Kent drain. This was no longer draining pus and we opened this and removed the Kent drain, connected the counter incision to the main wound of the foot. The pus seemed to emanate out from around the first metatarsal bone. There is just a small segment, approximately 2-3 cm segment of bone remaining, providing no function to the foot. As such, we excised this and debrided this back to the cuneiform bone of the foot and passed this off. The proximal bone here seemed healthy. There is more excisional debridement done with above dimensions. We obtained hemostasis in both wounds, irrigated the wounds, and packed with Vashe, Kerlix, with Kerlix and Severo wrap on top of this. He tolerated procedure well with no identified complication. All counts were correct at the conclusion of the case. No family was available. cc: Jailyn Geronimo MD [facility]
--- NOTE | 2016-08-08 18:37 | PROGRESS NOTE ---
DATE: 08/08/2016 SUBJECTIVE: Patient continues without chest discomfort or dyspnea. He underwent repeat debridement of his foot yesterday. OBJECTIVE: Vital Signs: Blood pressure 149/78, heart rate 84 and regular. Chest: Clear to auscultation. Cardiac Exam: A regular rate and rhythm without appreciable murmur or gallop. DIAGNOSTIC DATA: Transesophageal echocardiography report noted. Possible vegetation on pulmonic valve without pulmonic valve dysfunction. IMPRESSION: 1. Recurrent atrial arrhythmias. Patient continues in sinus rhythm. 2. Methicillin-resistant Staphylococcus aureus bacteremia, recurrent. Suspect most likely source is foot infection although or it could have been secondary seated from the foot. Seating of the foot from the heart would seem less likely in light of the right-sided nature of the valvular abnormality. Moreover isolated pulmonic valve endocarditis is very unusual and it would seem additionally unusual for it to occur without destructive changes in light of the aggressive nature of Staphylococcus aureus. Treatment plan may not be significantly altered as in the absence of large vegetation or significant valvular dysfunction, extended course of antibiotic therapy such as might already be needed to cover osteomyelitis should be sufficient. 3. Bilateral foot infections with methicillin-resistant Staphylococcus aureus. RECOMMENDATIONS: 1. Continue rate control and anticoagulation approach for management of recurrent atrial arrhythmias for now. 2. Extended antibiotic treatment likely planned should cover possibility of pulmonic valve endocarditis although this diagnosis seems unusual. cc: Mitch Blanchard MD
[2016-08-08] MEDS: ZOCOR PO SCH (20:48)
[2016-08-08] MEDS: NORCO-10 PO PRN (23:49)
[2016-08-09] MEDS: LOPRESSOR PO SCH ×4 (03:04→20:19)
[2016-08-09 04:57] LABS: MANUAL DIFF NEEDED? NO
[2016-08-09 05:02] LABS: BASO% 0.1 % (0.0-0.8); EOS# 0.08 X1000 (0.0-0.7); EOS% 1.1 % (0.0-10.0); HEMATOCRIT 28.4 % (42.0-52.0); HEMOGLOBIN 8.9 g/dL (14.0-18.0); IMM GRAN# 0.14 X1000 (0.0-0.04); IMM GRAN% 1.9 % (0.0-0.5); LYMPH# 1.49 X1000 (1.2-3.4); LYMPH% 20.6 % (20.5-51.1); MCH 29.4 PG (27-31); MCHC 31.3 g/dL (33-37); MCV 93.7 FL (81-99); MONO# 0.74 X1000 (0.11-0.59); MONO% 10.2 % (1.7-9.3); NEUT% 66.1 % (42.2-75.2); PLT 420 X1000 (130-400); RBC 3.03 XMIL (4.7-6.1)
[2016-08-09 05:23] LABS: AGAP 13; BUN 17 mg/dL (8-22); CALCIUM 7.8 mg/dL (8.8-10.2); CHLORIDE 97 mmol/L (98-107); COSMO 276; SODIUM 135 mmol/L (136-145); TCO2 25 mmol/L (25-35)
[2016-08-09] MEDS: HUMULIN R SUBQ SCH ×4 (06:15→20:17)
[2016-08-09] MEDS: PRILOSEC PO SCH (06:29)
[2016-08-09] MEDS: MORPHINE IV PRN ×5 (06:32→23:57)
[2016-08-09] MEDS: NICODERM PATCH TD SCH (08:08)
[2016-08-09] MEDS: PLAVIX PO SCH (08:08)
[2016-08-09] MEDS: FOLIC ACID PO SCH (08:08)
[2016-08-09] MEDS: LOVENOX SUBQ SCH (10:45)
[2016-08-09] MEDS: VANCOMYCIN 2,250 MG in NS 500 ML IV SCH (10:45)
--- NOTE | 2016-08-09 11:47 | PROGRESS NOTE ---
DATE: 08/09/2016 SUBJECTIVE: Patient continues without chest discomfort or dyspnea. OBJECTIVE: Vital Signs: Blood pressure 142/67, heart rate 69 and regular with ECG monitor showing sinus rhythm. Oxygen saturation greater than 98% on room air. Neck: There is no significant jugular venous distention. Chest: Clear to auscultation. Cardiac: Reveals a regular rate and rhythm without appreciable murmur or gallop. Extremities: Without edema. IMPRESSION: 1. Recurrent atrial arrhythmias. Patient continues in sinus rhythm. 2. Bilateral foot infection with methicillin-resistant Staph aureus. 3. Reported possible vegetation on pulmonic valve on transesophageal echocardiography. RECOMMENDATIONS: 1. Continue current cardiovascular regimen with rate control and anticoagulation. 2. Extended antibiotic treatment already dictated by diagnosis of osteomyelitis. This would also be appropriate for possible endocarditis as well. cc: Mitch Blanchard MD
[2016-08-09] MEDS: NORCO-10 PO PRN (17:38)
[2016-08-09] MEDS: LEVEMIR SUBQ SCH (20:17)
[2016-08-09] MEDS: ZOCOR PO SCH (20:19)
[2016-08-10] MEDS: LOPRESSOR PO SCH ×4 (03:27→20:54)
[2016-08-10 05:09] LABS: MANUAL DIFF NEEDED? NO
[2016-08-10] MEDS: MORPHINE IV PRN ×5 (05:13→23:29)
[2016-08-10 05:14] LABS: BASO% 0.3 % (0.0-0.8); EOS% 1.3 % (0.0-10.0); HEMATOCRIT 31.2 % (42.0-52.0); HEMOGLOBIN 9.7 g/dL (14.0-18.0); IMM GRAN# 0.17 X1000 (0.0-0.04); IMM GRAN% 2.2 % (0.0-0.5); LYMPH# 1.98 X1000 (1.2-3.4); LYMPH% 25.8 % (20.5-51.1); MCH 29.3 PG (27-31); MCHC 31.1 g/dL (33-37); MCV 94.3 FL (81-99); MONO# 0.66 X1000 (0.11-0.59); MONO% 8.6 % (1.7-9.3); MPV 8.9 FL (7.4-10.4); NEUT% 61.8 % (42.2-75.2); PLT 518 X1000 (130-400); RBC 3.31 XMIL (4.7-6.1)
[2016-08-10 05:42] LABS: AGAP 14; BUN 18 mg/dL (8-22); CALCIUM 8.3 mg/dL (8.8-10.2); CHLORIDE 96 mmol/L (98-107); COSMO 276; SODIUM 136 mmol/L (136-145); TCO2 26 mmol/L (25-35)
[2016-08-10] MEDS: HUMULIN R SUBQ SCH ×4 (06:02→20:55)
[2016-08-10] MEDS: PRILOSEC PO SCH (06:42)
[2016-08-10] MEDS: FOLIC ACID PO SCH (08:26)
[2016-08-10] MEDS: PLAVIX PO SCH (08:49)
[2016-08-10] MEDS: NICODERM PATCH TD SCH (08:50)
[2016-08-10] MEDS: VANCOMYCIN 2,250 MG in NS 500 ML IV SCH (09:59)
--- NOTE | 2016-08-10 10:38 | PROGRESS NOTE ---
DATE: 08/10/2016 SUBJECTIVE: Patient reports feeling fine. Mild pain in the right leg and that was waking him up last night. No fever or chills reported. OBJECTIVE: Vital Signs: Temperature 97.9 degrees, heart rate 69, respiratory rate 20, blood pressure 143/69, O2 saturation 99% on room air. General Examination: This is a pleasant, 56-year- old male, lying in bed, in no acute distress. HEENT: Head is normocephalic, atraumatic. Anicteric sclerae. Pale conjunctivae. Mucous membranes moist. Neck: Supple. No JVD noted. No carotid bruits. No lymphadenopathy. No thyromegaly. Cardiovascular: S1, S2 heard. No murmurs, gallops, or rubs. Regular rate and rhythm. Respiratory: Clear bilaterally to auscultation. No work of breathing or using accessory muscles. Abdomen: Soft. Nontender to palpation. Bowel sounds present. No organomegaly. Extremities: No clubbing, cyanosis, or edema. Lower extremities covered by dressing. Neurological: Patient moves 4 extremities. Alert and oriented x3. LABORATORY DATA: Reviewed. ASSESSMENT AND PLAN: 1. Severe bilateral lower extremity diabetic wounds. 2. 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 3. Methicillin-resistant Staphylococcus aureus bacteremia. 4. Endocarditis of the tricuspid valve. 5. Superficial femoral arterial occlusion status post atherectomy and angioplasty. 6. Anemia of chronic disease. 7. Uncontrolled diabetes mellitus. 8. Folate deficiency. 9. History of deep vein thrombosis. 10. Tobacco abuse. PLAN: The patient is stable. Dr. Juárez from infectious disease has placed this patient on vancomycin. Of course, because of this nearly diagnosed endocarditis, will see for how long he is planning to use antibiotics. He had a last debridement last Thursday and we are going to check with Dr. Geronimo on Thursday for how long this patient needs to be in the hospital from his standpoint. Otherwise, we can put a PICC line and send this patient home. Last blood course are so far negative. If the final results of the blood cultures are negative, will put that line. For anemia chronic disease, that condition is stable. For uncontrolled diabetes mellitus, patient is on a diabetic diet. For folate deficiency, will supplement that. cc: Carlos Elaine MD
[2016-08-10] MEDS: LOVENOX SUBQ SCH (11:50)
[2016-08-10] MEDS: NORCO-10 PO PRN ×2 (16:53→21:04)
[2016-08-10] MEDS: LEVEMIR SUBQ SCH (20:54)
[2016-08-10] MEDS: ZOCOR PO SCH (20:54)
[2016-08-11] MEDS: LOPRESSOR PO SCH ×4 (03:55→21:14)
[2016-08-11] MEDS: MORPHINE IV PRN ×2 (03:55→06:44)
[2016-08-11 05:03] LABS: MANUAL DIFF NEEDED? NO
[2016-08-11 05:07] LABS: BASO% 0.1 % (0.0-0.8); EOS% 1.5 % (0.0-10.0); HEMATOCRIT 27.5 % (42.0-52.0); HEMOGLOBIN 8.7 g/dL (14.0-18.0); IMM GRAN# 0.19 X1000 (0.0-0.04); IMM GRAN% 2.8 % (0.0-0.5); LYMPH# 1.84 X1000 (1.2-3.4); LYMPH% 26.9 % (20.5-51.1); MCH 29.4 PG (27-31); MCHC 31.6 g/dL (33-37); MCV 92.9 FL (81-99); MONO# 0.69 X1000 (0.11-0.59); MONO% 10.1 % (1.7-9.3); MPV 8.7 FL (7.4-10.4); NEUT% 58.6 % (42.2-75.2); PLT 437 X1000 (130-400); RBC 2.96 XMIL (4.7-6.1)
[2016-08-11 05:22] LABS: AGAP 10; BUN 22 mg/dL (8-22); CALCIUM 8.5 mg/dL (8.8-10.2); CHLORIDE 100 mmol/L (98-107); COSMO 274; POTASSIUM 4.4 mmol/L (3.5-5.1); SODIUM 135 mmol/L (136-145); TCO2 25 mmol/L (25-35)
[2016-08-11] MEDS: HUMULIN R SUBQ SCH ×4 (06:17→21:14)
--- NOTE | 2016-08-11 06:30 | PROGRESS NOTE ---
DATE: 08/11/2016 PRESENT ILLNESS: The patient is being treated for methicillin-resistant Staph aureus involving both feet as well as the Staph aureus bacteremia. An echocardiogram done on the 08 of August shows that the patient most likely has pulmonary valve endocarditis as well. MEDICATIONS: This is day 2 of vancomycin treatment following the first negative blood culture. PHYSICAL EXAMINATION: Vital Signs: Temperature is 97.7 degrees, pulse 67, respirations 18, blood pressure 146/66. Generally: This is an obese, middle-aged male who is in no acute distress. Lungs: Clear to auscultation. Cardiovascular: Regular heart rate. I did not hear a murmur. Abdomen: Soft and nontender. Extremities: Both feet have dressings around them. The dressings are intact. 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 The patient's CBC shows a white count of 6850, hemoglobin 8.7, and platelet count of 437,000. Patient's creatinine is 0.8. GFR is greater than 60. A vancomycin level was 17.9. Repeat blood cultures are negative at 48 hours. The patient's operative note shows that the patient did excisional debridement of the right calcaneus and excision of the left 1st metatarsal. ASSESSMENT AND PLAN: The patient has a MRSA bacteremia, pulmonary valve endocarditis and bilateral foot osteomyelitis. The plan is to continue with antibiotics for a total of 8 weeks following the first negative blood culture. COMORBIDITIES: Include diabetes mellitus, cigarette smoking, and peripheral vascular disease. cc: Sj Juárez MD
[2016-08-11] MEDS: PRILOSEC PO SCH (06:32)
[2016-08-11] MEDS: FOLIC ACID PO SCH (08:12)
[2016-08-11] MEDS: NORCO-10 PO PRN ×3 (08:12→18:53)
[2016-08-11] MEDS: PLAVIX PO SCH (08:12)
[2016-08-11] MEDS: DILAUDID IV PRN ×5 (08:31→21:10)
[2016-08-11] MEDS: NICODERM PATCH TD SCH (10:02)
[2016-08-11] MEDS: VANCOMYCIN 2,250 MG in NS 500 ML IV SCH (10:03)
[2016-08-11] MEDS: LOVENOX SUBQ SCH (10:51)
--- NOTE | 2016-08-11 14:55 | PROGRESS NOTE ---
DATE: 08/11/2016 SUBJECTIVE: The patient was complaining of mild pain in both lower extremities this morning. By now, he is feeling fine. OBJECTIVE: Vital Signs: Temperature 97.6 degrees, heart rate 92, respiratory rate 18, blood pressure 123/85. O2 saturation 100% on room air. General Appearance: This is a pleasant 56- year-old, morbidly obese, male, lying in bed in no acute distress. HEENT: Head is normocephalic, atraumatic. Anicteric sclerae and pale conjunctivae. Mucous membranes moist. Neck: Supple. No jugular venous distention noted. No carotid bruits. No lymphadenopathy. No thyromegaly. Cardiovascular: S1, S2 heard. No murmurs, gallops, or rubs. Regular rate and rhythm. Respiratory Examination: Clear bilaterally to auscultation. No work of breathing or using accessory muscles. Abdomen: Soft, nontender to palpation. Bowel sounds present. No organomegaly. Extremities: No clubbing, cyanosis, or edema. There is lower extremities covered by dressing. Dry and clean. Neurological: Patient moves 4 extremities. LABORATORY DATA: Reviewed. ASSESSMENT AND PLAN: 1. Severe bilateral lower extremities diabetic wounds. 2. Methicillin resistant staph aureus osteomyelitis of both feet. 3. Methicillin resistant staph aureus bacteremia. 4. Endocarditis of the tricuspid valve. 5. Superficial femoral arterial occlusion, status post arterectomy and angiopathy. 6. Anemia of chronic disease. 7. Complicated diabetes mellitus. 8. Folate deficiency. 9. History of deep vein thrombosis. 10. Tobacco abuse. PLAN: 1. The patient is stable. Dr. Juárez, from infectious disease, is following this patient regarding antibiotic management. The patient is stable and Dr. Geronimo is following this patient from surgical standpoint. The patient will be kept in the hospital for the time that Dr. Geronimo considers necessary. As soon as we get clearance from surgery, we can send this patient home with IV antibiotics. At this time, he is going to get a PICC line considering that the blood culture has returned negative. 2. For uncontrolled diabetes mellitus, we will continue with sliding scale insulin. 3. For folate deficiency, we will supplement that. cc: Carlos Elaine MD
--- NOTE | 2016-08-11 17:37 | PROGRESS NOTE ---
DATE: 08/11/2016 SUBJECTIVE: Disgruntled this morning. Feels as though he does not know what is going on with his care. Some discomfort in his feet. OBJECTIVE: Vital signs: Temperature is 98.9 degrees, no fevers overnight. Pulse 71, blood pressure 135/66, oxygen saturation 100% on room air. General: He is alert, no acute distress. His right calcaneal wound with no ongoing necrosis. There is exposed bone. I do not see any purulence here. The medial malleolar wound is granulating. On the left side his transmetatarsal site I see some scant purulent drainage from the proximal aspect of the wound but there is no necrosis here in need of debridement. The cellulitis extending up his leg is much better. LABORATORY: White count 6, hematocrit 27, platelets are 437,000. Creatinine 0.8, glucose 150. Blood cultures repeat from the show Staph aureus. Repeat have no growth after 48 hours. ASSESSMENT AND PLAN: This is a 56-year-old male status post multiple debridements bilateral lower extremity foot wounds. Most recently on Thursday had Dr. Duarte come in to evaluate his wound intraoperatively. He feels there is low likelihood of healing of the calcaneus on the right and very limited likelihood of him having normal functionality of that foot and suspect he will most likely progress to amputation. On left side we did debride back more bone but is clean now and improved perfusion noted after the atherectomy. Had a long discussion with the patient. I have recommended wound VACs on both feet. However he states he does not want wound VACs on both feet. He only wants it on the right. He has refused placement of wound VAC on the left foot. We have discussed the likelihood that he could will most likely progress to below-knee amputation the right side. He understands this but does not want to pursue this at this point and I think it is reasonable to treated with wound VAC therapy. I had a long discussion with him about wound VAC contribution to the healing of his wound and the role plays but he has refused this. States he does not want VACs on both feet. He is on IV antibiotics. They are treating him for the possibility of endocarditis. Complicated situation with bad wounds bilaterally multiple contributing factors including medical noncompliance. He continues to dictate his care daily and is quite angry with his current situation. cc: Jailyn Geronimo MD [facility]
--- NOTE | 2016-08-11 18:05 | PROGRESS NOTE ---
DATE: 08/11/2016 SUBJECTIVE: Patient continues without chest discomfort or dyspnea on room air. OBJECTIVE: Vital signs: Blood pressure 135/66, heart rate 71 and regular with ECG monitor showing sinus rhythm. Oxygen saturation 100% on room air. Temperature 98.9 degrees. Chest: Clear to auscultation Cardiac: Exam reveals a regular rate and rhythm without appreciable murmur or gallop. There is no evidence of peripheral edema. IMPRESSION: 1. Recurrent atrial arrhythmias. Patient continues in sinus rhythm. 2. Bilateral foot infection with methicillin Staphylococcus aureus. 3. Reported possible vegetation on pulmonic valve on transesophageal echocardiography obtained to further evaluate recurrent methicillin-resistant staph bacteremia. Cannot exclude pulmonic valve endocarditis. 4. Complicated diabetes mellitus. 5. Anemia of chronic disease. RECOMMENDATIONS: 1. Agree with plans to treat patient for extended periods for methicillin-resistant Staph aureus that would cover both osteomyelitis and the possibility of endocarditis. 2. Continue current cardiovascular regimen unchanged and monitor rhythm while patient is inpatient. 3. Continue anticoagulation. 4. Will see further on as-needed basis. cc: Mitch Blanchard MD
[2016-08-11] MEDS ORDERED: INSULIN PEN NEEDLES ONE (19:55)
--- NOTE | 2016-08-11 19:58 | PROGRESS NOTE ---
DATE: 08/09/2016 SUBJECTIVE: The patient reports feeling fine. He reports the pain is well controlled. No fever or chills. No chest pain. OBJECTIVE: Vital Signs: Temperature 97.7 degrees, heart rate 69, respiratory rate 18, blood pressure 142/67, O2 saturation 100% on room air. General: This is a chronically ill-looking, 56- year-old male, lying in bed, in no acute distress. HEENT: Head is normocephalic and atraumatic. Anicteric sclerae and pale conjunctivae. Mucous membranes moist. Neck supple. No JVD noted. No carotid bruits. No lymphadenopathy. No thyromegaly. Cardiovascular: S1, S2 heard. No murmurs, gallops, or rubs. Regular rate and rhythm. Respiratory: Clear bilaterally to auscultation. No work of breathing or using accessory muscles. Abdomen is soft, nontender to palpation. Pulses present. No organomegaly. Extremity: No clubbing, cyanosis, or edema. Peripheral pulses present in both legs. Neurologic: The patient is alert and oriented x3, able to move her extremities. Cranial nerves 2-12 grossly normal. Extremities: Both lower extremities covered by dressing. No clubbing, cyanosis, or edema noted. LABORATORY DATA: White cell count 7.23, hemoglobin 8.9, hematocrit 28.4, platelets 420. BMP unremarkable. ASSESSMENT AND PLAN: 1. Severe bilateral lower extremity diabetic wounds. 2. 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 3. Methicillin-resistant Staphylococcus aureus bacteremia. 4. Methicillin-resistant Staphylococcus aureus endocarditis. 5. Superficial femoral arterial occlusion, status post atherectomy and angioplasty. 6. Anemia of chronic disease. 7. Uncontrolled diabetes mellitus. 8. Folate deficiency. 9. History of deep venous thrombosis. 10. Tobacco abuse. PLAN: The patient is stable. Dr. Juárez is following this patient because of suspicion for endocarditis. Dr. Juárez ordered an echocardiogram which confirmed that this patient has a 0.8 cm mass in the pulmonic valve. From this point, we are going to continue following recommendations from Dr. Juárez. Cardiology is also following this patient and they do not think this patient will need more treatment for this endocarditis which is more than he needs antibiotics for this osteomyelitis. In any case, the patient is hemodynamically stable. Dr. Geronimo is following this patient. Yesterday, he had surgical cleaning. Apparently, there is a recommendation from Dr. Duarte, our reading specialist, to do a [id number] amputation, but the patient continues to refuse that. In any case, we will keep this patient until next Thursday. We will see what Infectious Disease and Surgery has to say; otherwise, he will be ready for discharge if everything goes well over the weekend. cc: Carlos Elaine MD
[2016-08-11] MEDS: LEVEMIR SUBQ SCH (21:13)
[2016-08-11] MEDS: ZOCOR PO SCH (21:14)
[2016-08-12] MEDS: DILAUDID IV PRN ×9 (00:04→23:47)
[2016-08-12] MEDS: LOPRESSOR PO SCH ×4 (03:15→20:45)
[2016-08-12 05:00] LABS: MANUAL DIFF NEEDED? NO
[2016-08-12 05:03] LABS: BASO% 0.2 % (0.0-0.8); EOS% 1.6 % (0.0-10.0); HEMATOCRIT 26.5 % (42.0-52.0); HEMOGLOBIN 8.3 g/dL (14.0-18.0); IMM GRAN# 0.18 X1000 (0.0-0.04); IMM GRAN% 2.9 % (0.0-0.5); LYMPH# 1.73 X1000 (1.2-3.4); LYMPH% 27.4 % (20.5-51.1); MCHC 31.3 g/dL (33-37); MCV 92.7 FL (81-99); MONO# 0.76 X1000 (0.11-0.59); MPV 8.6 FL (7.4-10.4); NEUT% 55.9 % (42.2-75.2); PLT 429 X1000 (130-400); RBC 2.86 XMIL (4.7-6.1)
[2016-08-12 05:25] LABS: AGAP 11; BUN 25 mg/dL (8-22); CALCIUM 8.1 mg/dL (8.8-10.2); CHLORIDE 96 mmol/L (98-107); COSMO 275; POTASSIUM 4.1 mmol/L (3.5-5.1); SODIUM 133 mmol/L (136-145); TCO2 26 mmol/L (25-35)
[2016-08-12] MEDS: NORCO-10 PO PRN (05:25)
[2016-08-12] MEDS: PRILOSEC PO SCH (06:19)
[2016-08-12] MEDS: HUMULIN R SUBQ SCH ×4 (06:19→20:46)
--- NOTE | 2016-08-12 06:42 | PROGRESS NOTE ---
DATE: 08/12/2016 PRESENT ILLNESS: The patient is status post debridement of both feet. He has a methicillin- resistant Staphylococcus aureus bacteremia, pulmonary valve endocarditis, and osteomyelitis of both feet. MEDICATIONS: This is day 3 of treatment with vancomycin following the first negative blood culture. PHYSICAL EXAMINATION: Vital Signs: Temperature is 98.2 degrees, pulse 72, respirations 20, blood pressure 128/63. General: This is an obese, middle-aged male. He is in no acute distress. Head, Eyes, Ears, Nose, and Throat: He can see near objects. He can hear my spoken words. Lungs: Clear to auscultation. Cardiovascular: Regular heart rate. Abdomen: Soft and nontender. Extremities: The patient has a VAC on the right heel. He has a dressing on the left foot. Both the VAC and dressing are intact. LAB AND X-RAY: The patient's CBC for today shows a white count of 6310, hemoglobin 8.3, and platelet count 429,000. Creatinine is 0.9. GFR is greater than 60. There is no new radiographic study today. ASSESSMENT AND PLAN: The patient has, as mentioned above, a methicillin-resistant Staphylococcus aureus bacteremia, endocarditis, and osteomyelitis of the feet. My plan is to treat him for a total of 8 weeks with the vancomycin. COMORBIDITIES: Include the following: The patient has diabetes mellitus, peripheral vascular disease, and he is a cigarette smoker. cc: Sj Juárez MD
[2016-08-12] MEDS: PLAVIX PO SCH (09:05)
[2016-08-12] MEDS: FOLIC ACID PO SCH (09:06)
[2016-08-12] MEDS: NICODERM PATCH TD SCH (09:09)
[2016-08-12] MEDS: VANCOMYCIN 2,500 MG in NS 500 ML IV SCH (09:44)
--- NOTE | 2016-08-12 09:59 | PROGRESS NOTE ---
DATE: 08/12/2016 SUBJECTIVE: VAC was placed only on the patient's right foot at his request yesterday. He has got a dressing on the left. Some pain in his right heel. OBJECTIVE: Vital Signs: No fevers. Temperature is 97.7 degrees this morning. Pulse 68, blood pressure 124/68, oxygen saturation 98% on room air. Extremities: His right calcaneal wound has a wound VAC in place, and his left dressing is clean, dry, intact. There is decreased erythema and swelling in his legs, and they are well perfused distally. LABS: Hematocrit is 26 and is stable. White count 6. Creatinine 0.9 and glucose 169. ASSESSMENT/PLAN: This is a 56-year-old male with severe methicillin-resistant Staphylococcus aureus- infected diabetic wounds bilaterally. He has undergone now times two debridements, and is in the process of healing these wounds. He has got a wound VAC in the right; he has refused wound VAC placement on the left which I have recommended, but we are doing twice daily dressing changes with Kyra here. He is on appropriate antibiotics. Will continue to follow along. I think he is nearing ready for disposition, but he is going to need either rehabilitation facility or at the least home health given his mobility issues, and his extensive wound care and intravenous antibiotics, but will continue to follow along. He is also being treated adequately for the suspected endocarditis. cc: Jailyn Geronimo MD
--- NOTE | 2016-08-12 10:10 | PROGRESS NOTE ---
DATE: 08/12/2016 SUBJECTIVE: This patient is still complaining of mild to moderate lower extremity pain. Otherwise, she is feeling fine. OBJECTIVE: Vital Signs: Temperature 97.7 degrees, pulse 68, respiratory rate 14, blood pressure 124/68, oxygen saturation 98 on room air. HEENT: Head normocephalic. No trauma. PERRLA. Neck: Supple. No JVD. No masses. Central trachea. Chest: Clear to auscultation. No wheezing. No rales. Abdomen: Soft, nontender, nondistended. No hepatosplenomegaly. Extremities: Left lower extremity is covered by a dressing that looks clean and dry. I opened up this and I saw the lesion. He had an amputation of all his toes and that extended to the metatarsal area. There are no signs of necrosis at this moment but there is a secretion. A new clean dressing was placed again. On the right lower extremity, it looks a little bit edematous. A dressing with a wound VAC is at the level of the calcaneus area. Neurological Examination: The patient is alert and oriented x3. He moves all 4 extremities. Laboratory: WBC 6.3, hemoglobin 8.3, hematocrit 26.5, platelets 429,000. Sodium 133, potassium 4.1, chloride 96, bicarbonate 26, BUN 25, creatinine 0.9, glucose 169, calcium 8.1. ASSESSMENT AND PLAN: 1. Severe bilateral lower extremity diabetic wounds. He is using a right lower extremity wound VAC. He refused to use this wound VAC on the left foot. Infectious disease department is following this patient. We will continue with the antibiotics. 2. Methicillin-resistant Staphylococcus aureus, osteomyelitis on both feet. Continue with the same management. He is on vancomycin. Infectious disease department is following this patient. 3. Methicillin-resistant Staphylococcus aureus bacteremia. Again, this patient should be on antibiotics at least 8 weeks. He is on vancomycin at this moment. 4. Endocarditis of the tricuspid valve. Continue with antibiotics. 5. Superficial femoral arterial occlusion, status post atherectomy and angiography. Surgery department is following this patient. We will follow their recommendations. 6. Anemia of chronic disease. Aware. 7. Complicated type 2 diabetes. The blood sugar has been under control. Continue with the same management. 8. Folate deficiency. Continue with the same treatment. 9. History of deep venous thrombosis. Continue with the same management. 10. Tobacco abuse. This patient has been highly advised against tobacco abuse. I will continue with daily cessation education. 11. Medical noncompliance. Aware. I will continue with daily education. cc: Amrit Barker MD
[2016-08-12] MEDS ORDERED: NS 250 ML ONE (11:13)
[2016-08-12] MEDS: LOVENOX SUBQ SCH (13:24)
[2016-08-12] MEDS: LEVEMIR SUBQ SCH (20:45)
[2016-08-12] MEDS: ZOCOR PO SCH (20:45)
[2016-08-13] MEDS: NORCO-10 PO PRN ×2 (00:55→06:02)
[2016-08-13] MEDS: LOPRESSOR PO SCH ×4 (02:41→21:23)
[2016-08-13] MEDS: DILAUDID IV PRN ×7 (02:49→21:10)
[2016-08-13 05:29] LABS: MANUAL DIFF NEEDED? NO
[2016-08-13 05:41] LABS: BASO% 0.3 % (0.0-0.8); EOS# 0.08 X1000 (0.0-0.7); EOS% 1.1 % (0.0-10.0); HEMATOCRIT 26.6 % (42.0-52.0); HEMOGLOBIN 8.2 g/dL (14.0-18.0); IMM GRAN# 0.12 X1000 (0.0-0.04); IMM GRAN% 1.6 % (0.0-0.5); LYMPH# 1.62 X1000 (1.2-3.4); LYMPH% 22.3 % (20.5-51.1); MCH 28.6 PG (27-31); MCHC 30.8 g/dL (33-37); MCV 92.7 FL (81-99); MONO# 0.92 X1000 (0.11-0.59); MONO% 12.6 % (1.7-9.3); MPV 9.2 FL (7.4-10.4); NEUT% 62.1 % (42.2-75.2); PLT 456 X1000 (130-400); RBC 2.87 XMIL (4.7-6.1)
[2016-08-13] MEDS: PRILOSEC PO SCH (05:59)
[2016-08-13] MEDS: HUMULIN R SUBQ SCH ×4 (06:02→21:11)
[2016-08-13 06:06] LABS: AGAP 12; BUN 28 mg/dL (8-22); CALCIUM 7.9 mg/dL (8.8-10.2); CHLORIDE 94 mmol/L (98-107); COSMO 277; POTASSIUM 4.6 mmol/L (3.5-5.1); SODIUM 132 mmol/L (136-145); TCO2 26 mmol/L (25-35)
--- NOTE | 2016-08-13 06:31 | PROGRESS NOTE ---
DATE: 08/12/2016 PRESENT ILLNESS: The patient has methicillin-resistant Staph aureus bacteremia, pulmonary valve endocarditis, and osteomyelitis of both feet. MEDICATIONS: This is day 4 of treatment with vancomycin following the patient's 1st negative blood culture. PHYSICAL EXAMINATION: Vital Signs: Temperature is 97.4 degrees, pulse 74, respirations 20, blood pressure 117/58. Generally: A fairly healthy-appearing but obese middle-aged male. He is in no acute distress. Lungs: Clear to auscultation. Cardiovascular: Heart rate was regular. Abdomen: Soft and nontender. Extremities: There is a dressing on the patient's left foot and the VAC is present on the right foot. LAB AND X-RAY: The patient's CBC from today shows a white count of 7280, hemoglobin 8.2 and platelet count 456,000. Creatinine 0.9. GFR is greater than 60. There is no new radiographic study. ASSESSMENT AND PLAN: As mentioned above, the patient has methicillin-resistant Staph aureus bacteremia which now is clearing in view of the fact that his repeat blood cultures are sterile. He also has endocarditis and osteomyelitis of both feet. The plan is to continue treatment for a total of 8 weeks. COMORBIDITIES: 1. Diabetes mellitus. 2. Peripheral vascular disease. 3. Cigarette smoking. cc: Sj Juárez MD
[2016-08-13] MEDS: VANCOMYCIN 2,500 MG in NS 500 ML IV SCH (09:09)
[2016-08-13] MEDS: PLAVIX PO SCH (09:09)
[2016-08-13] MEDS: FOLIC ACID PO SCH (09:09)
[2016-08-13] MEDS: NICODERM PATCH TD SCH (09:11)
[2016-08-13] MEDS: LOVENOX SUBQ SCH (11:37)
[2016-08-13] MEDS ORDERED: NORCO-10 PO PRN ×2 (13:04→17:18)
--- NOTE | 2016-08-13 13:56 | PROGRESS NOTE ---
DATE: 08/13/2016 SUBJECTIVE: Pains in his feet, but otherwise no complaints. OBJECTIVE: No fever. Temperature is 97.8, pulse 68, blood pressure 111/62, 100% on room air. Wound V. A. C. dressing is in place on his right, dressing clean on the left. Otherwise no other cutaneous changes. LABORATORIES: White count is down to 7, hematocrit is 26. Creatinine 0.9, glucose 202. ASSESSMENT AND PLAN: A 56-year-old male with severe infected wounds to bilateral feet. These are clearing up nicely and he has a V.A.C. and is tolerating wound dressing changes to his left well. We will work on his pain medicine today. He does not want to go to rehab facility and is going to go home. So I suspect he will remain inpatient for his wound care needs and his IV antibiotics, but I think he is nearing ready for discharge. cc: Jailyn Geronimo MD
--- NOTE | 2016-08-13 14:26 | PROGRESS NOTE ---
DATE: 08/13/2016 SUBJECTIVE: This patient states that he is doing better. He is still complaining of lower extremity pain. The surgery department has evaluated this patient. Probably this patient will spend the weekend here getting treatment and wound care, and probably he will be discharged on Thursday or at the beginning of the next week. OBJECTIVE: Vital Signs: Temperature 97.6 degrees, pulse 87, respiratory rate 16, blood pressure 116/62, and O2 saturation 100% on room. HEENT: Normocephalic. No trauma. PERRLA. Neck: Supple. No JVD. No masses. Central trachea. Chest: Clear to auscultation. No wheezing. No rales. Abdomen: Soft, nontender, nondistended. No hepatosplenomegaly. Extremities: Left lower extremity is covered with a dressing that looks clean and dry. There are no signs of discharge. On the right lower extremity, it looks a little bit edematous. A dressing with a wound VAC is at the level of the calcaneal area. Neurological: The patient is alert and oriented x3. No focal neurological deficits. LABORATORY DATA: WBC 7.2, hemoglobin 9.2, hematocrit 26.6, platelets 456,000. Sodium 132, potassium 4.6, chloride 94, bicarbonate 26, BUN 28, creatinine 0.9, glucose 224, calcium 7.9. ASSESSMENT AND PLAN: 1. Severe bilateral lower extremity diabetic wounds. He is using a right lower extremity wound vacuum-assisted closure. He refused to use the wound vacuum-assisted closure on the left foot. The infectious disease department is following this patient. We will continue with the same antibiotics. Hopefully, this patient will be discharged at the beginning of the next week. 2. Methicillin-resistant Staphylococcus wound infection/osteomyelitis on both feet. Continue with the same management. He is on vancomycin. Infectious disease department is following this patient. 3. Methicillin-resistant Staphylococcus bacteremia. Continue with the same management. It will be for at least 8 weeks. 4. Endocarditis of the tricuspid valve. Continue with antibiotics. 5. Superficial femoral arterial occlusion, status post atherectomy and angiography. The surgery department is following this patient. We will follow their recommendations. 6. Anemia of chronic disease, aware. 7. Complicated type 2 diabetes. The blood sugar is under control. Continue with the same management. 8. Folate deficiency. Continue with the same treatment. 9. History of deep vein thrombosis. Continue with the same management. 10. Tobacco abuse. This patient has been highly advised against tobacco abuse. I will continue with daily cessation education. 11. Medical noncompliance, aware. We will continue with daily education. cc: Amrit Barker MD
[2016-08-13] MEDS: ZOCOR PO SCH (21:10)
[2016-08-13] MEDS: LEVEMIR SUBQ SCH (21:10)
[2016-08-14] MEDS: DILAUDID IV PRN ×9 (00:02→23:46)
[2016-08-14] MEDS: NORCO-10 PO PRN ×3 (00:04→23:47)
[2016-08-14] MEDS: LOPRESSOR PO SCH ×4 (03:06→21:19)
[2016-08-14 05:09] LABS: MANUAL DIFF NEEDED? NO
[2016-08-14 05:29] LABS: BASO% 0.2 % (0.0-0.8); EOS# 0.11 X1000 (0.0-0.7); EOS% 1.9 % (0.0-10.0); HEMATOCRIT 26.7 % (42.0-52.0); HEMOGLOBIN 8.3 g/dL (14.0-18.0); IMM GRAN# 0.13 X1000 (0.0-0.04); IMM GRAN% 2.3 % (0.0-0.5); LYMPH# 1.74 X1000 (1.2-3.4); LYMPH% 30.6 % (20.5-51.1); MCH 28.8 PG (27-31); MCHC 31.1 g/dL (33-37); MCV 92.7 FL (81-99); MONO# 0.76 X1000 (0.11-0.59); MONO% 13.4 % (1.7-9.3); NEUT% 51.6 % (42.2-75.2); PLT 452 X1000 (130-400); RBC 2.88 XMIL (4.7-6.1)
[2016-08-14 05:39] LABS: AGAP 11; BUN 26 mg/dL (8-22); CALCIUM 8.1 mg/dL (8.8-10.2); CHLORIDE 96 mmol/L (98-107); COSMO 275; POTASSIUM 4.2 mmol/L (3.5-5.1); SODIUM 134 mmol/L (136-145); TCO2 27 mmol/L (25-35)
[2016-08-14] MEDS: PRILOSEC PO SCH (06:19)
[2016-08-14] MEDS: HUMULIN R SUBQ SCH ×4 (06:20→21:21)
--- NOTE | 2016-08-14 08:41 | PROGRESS NOTE ---
DATE: 08/14/2016 SUBJECTIVE: Feels well. Pain is better controlled with his new regimen overnight. OBJECTIVE: Vital Signs: No fevers. No tachycardia. Blood pressure is normal. Oxygen saturation 100% on room air. General: He is alert, in no acute distress. Wound VAC is in place on his right foot. This is well perfused. No cellulitis. Left dressing is clean, dry, and intact. It is warm down to the level angle. White count 5, hematocrit 26, creatinine 0.9, glucose 137. ASSESSMENT: This is a 56-year-old male with severe bilateral methicillin resistant staph aureus diabetic foot infection, status post debridement. The wound is cleaning up nicely. Got a VAC in place on the right, refusing VAC on the left. I think he is stabilizing clinically, now it is just a matter of getting these wounds healed. I will monitor him through the weekend and plan for possible home with home health on Thursday. I can follow at [facility] for wound care. cc: Jailyn Geronimo MD
[2016-08-14] MEDS: NICODERM PATCH TD SCH ×3 (09:04→09:06)
[2016-08-14] MEDS: PLAVIX PO SCH (09:06)
[2016-08-14] MEDS: FOLIC ACID PO SCH (09:06)
[2016-08-14] MEDS: VANCOMYCIN 2,500 MG in NS 500 ML IV SCH (09:42)
[2016-08-14] MEDS: LOVENOX SUBQ SCH (11:59)
--- NOTE | 2016-08-14 12:17 | PROGRESS NOTE ---
DATE: 08/14/2016 SUBJECTIVE: This patient states that he is doing better. His pain is better controlled. Surgery department evaluated this patient and we are going to continue with the same management for now. It looks like she is getting better. Probably he will be discharged next Thursday. OBJECTIVE: Vital Signs: Temperature 97.7 degrees, pulse 86, respiratory rate 18, blood pressure 116/64, oxygen saturation 100% on room air. HEENT: Head normocephalic. No trauma. PERRLA. Neck: Supple. No JVD. No masses. Central trachea. Chest: Clear to auscultation. No wheezing. No rales. Abdomen: Soft, nontender, nondistended. No hepatosplenomegaly. Extremities: Left lower extremity is covered with a dressing that looks clean and dry. There is no sign of discharge. The right lower extremity looks a little bit edematous. There is a dressing with a wound VAC at the level of the calcaneus. Neurological: The patient is alert and oriented x3. No focal neurological deficits. LABORATORY: WBC 5.6, hemoglobin 8.3, hematocrit 26.7, platelets 452,000. Sodium 134, potassium 4.2, chloride 96, bicarbonate 27, BUN 26, creatinine 0.9, glucose 137, calcium 8.1. ASSESSMENT AND PLAN: 1. Severe bilateral lower extremity diabetic wounds. He is using a right lower extremity wound vacuum-assisted closure. He refuses to use the wound VAC on the left foot. Infectious disease department is following this patient. We will continue with the same management for now. Hopefully this patient will be discharged next Thursday. 2. Methicillin-resistant Staphylococcus aureus wound infection/osteomyelitis of both feet. Continue with the same management. He is on vancomycin. Infectious disease department is following this patient. 3. Methicillin-resistant Staphylococcus aureus bacteremia. Continue with the same management. 4. Endocarditis of the tricuspid valve. Continue with antibiotics. 5. Superficial femoral arterial occlusion status post atherectomy and angiography. Surgery department is following this patient. We will continue following their recommendations. 6. Anemia of chronic disease. Aware. 7. Complicated type 2 diabetes. The blood sugar is under control. Continue with the same management. 8. Folate deficiency. Continue with the same treatment. 9. History of deep vein thrombosis. Aware. 10. Tobacco abuse. This patient has been highly advised to quit smoking. I will continue with daily cessation education. 11. Medical noncompliance. Aware. We will continue with daily education. cc: Amrit Barker MD
[2016-08-14] MEDS: SANTYL OINT TOP SCH ×2 (16:38→16:56)
[2016-08-14] MEDS: ZOCOR PO SCH (21:19)
[2016-08-14] MEDS: LEVEMIR SUBQ SCH (21:20)
[2016-08-15] MEDS: LOPRESSOR PO SCH ×4 (02:10→21:09)
[2016-08-15] MEDS: DILAUDID IV PRN ×6 (03:32→21:36)
[2016-08-15 05:02] LABS: MANUAL DIFF NEEDED? NO
[2016-08-15 05:09] LABS: BASO% 0.1 % (0.0-0.8); EOS# 0.08 X1000 (0.0-0.7); EOS% 1.1 % (0.0-10.0); HEMATOCRIT 26.3 % (42.0-52.0); HEMOGLOBIN 8.3 g/dL (14.0-18.0); IMM GRAN# 0.08 X1000 (0.0-0.04); IMM GRAN% 1.1 % (0.0-0.5); LYMPH% 21.5 % (20.5-51.1); MCHC 31.6 g/dL (33-37); MONO# 0.84 X1000 (0.11-0.59); MPV 8.7 FL (7.4-10.4); NEUT% 64.2 % (42.2-75.2); PLT 445 X1000 (130-400); RBC 2.86 XMIL (4.7-6.1)
[2016-08-15 05:15] LABS: INR 1.04; PTT 33.7 Seconds (22.0-36.0)
[2016-08-15 05:31] LABS: AGAP 10; BUN 27 mg/dL (8-22); CALCIUM 8.1 mg/dL (8.8-10.2); CHLORIDE 97 mmol/L (98-107); COSMO 277; POTASSIUM 4.4 mmol/L (3.5-5.1); SODIUM 133 mmol/L (136-145); TCO2 26 mmol/L (25-35)
[2016-08-15] MEDS: HUMULIN R SUBQ SCH ×4 (06:36→21:09)
[2016-08-15] MEDS: PRILOSEC PO SCH (06:37)
--- NOTE | 2016-08-15 07:15 | PROGRESS NOTE ---
DATE: 08/15/2016 PRESENT ILLNESS: The patient has a methicillin-resistant Staph aureus bacteremia, pulmonary valve endocarditis, and osteomyelitis of both feet. MEDICATIONS: This is day 6 of treatment with vancomycin following the patient's first negative blood culture. PHYSICAL EXAMINATION: Vital Signs: Temperature is 98.1 degrees, pulse 75, respirations 18, blood pressure 111/57. General: This is an obese, fairly healthy-appearing, middle-aged male. He is in no acute distress. Cardiovascular: Heart rate is regular. Lungs clear to auscultation. Abdomen soft and nontender. Extremities: The patient's right foot has the VAC applied to it. There is some minimal erythema of the foot. The left foot has a dressing around it. The dressing is intact. LABORATORY DATA AND X-RAY: There is no new radiographic study. The patient's CBC shows a white count of 6980, hemoglobin 8.3, and platelet count 445,000. Creatinine is 0.9. GFR is greater than 60. Repeat blood cultures are sterile. ASSESSMENT AND PLAN: 1. Methicillin-resistant Staphylococcus aureus bacteremia. 2. Pulmonary valve endocarditis. 3. Osteomyelitis of both feet. PLAN: My plan is to continue vancomycin for a total of 8 weeks of treatment. Possibly, this will be followed up with prolonged oral antibiotic also. The patient's comorbidities include diabetes mellitus, peripheral vascular disease and cigarette smoking. cc: Sj Juárez MD
[2016-08-15] MEDS: FOLIC ACID PO SCH (08:39)
[2016-08-15] MEDS: PLAVIX PO SCH (08:39)
[2016-08-15] MEDS: NICODERM PATCH TD SCH (08:40)
[2016-08-15] MEDS ORDERED: CATHFLO IV ONE ×2 (09:19→11:53)
[2016-08-15] MEDS ORDERED: STERILE WATER INJ. INJ ONE ×2 (09:19→11:53)
[2016-08-15] MEDS: SANTYL OINT TOP SCH (12:10)
[2016-08-15] MEDS: LOVENOX SUBQ SCH (12:18)
[2016-08-15] MEDS: VANCOMYCIN 2,500 MG in NS 500 ML IV SCH (13:41)
[2016-08-15] MEDS: NORCO-10 PO PRN (13:52)
--- NOTE | 2016-08-15 13:52 | PROGRESS NOTE ---
DATE: 08/15/2016 SUBJECTIVE: Pain is better. No complaints. He is getting ready to go home on Thursday. Dressing changes are going well. OBJECTIVE: Vital Signs: No fevers. Heart rate is 79. Blood pressure is 137/63. Extremities: Right calcaneal wound VAC is in place. Left dressing is intact. No cellulitis extending up the leg. LABORATORY DATA: I reviewed his labs. White count is down to 6, hematocrit 26. Creatinine 0.9, glucose 183. ASSESSMENT AND PLAN: A 56-year-old male with a severe diabetic foot infection bilaterally, possible endocarditis. We will continue dressing changes and plan for him to go home on Thursday with home health, but we will see how he does over the weekend. cc: Jailyn Geronimo MD
--- NOTE | 2016-08-15 14:32 | PROGRESS NOTE ---
DATE: 08/15/2016 SUBJECTIVE: This patient states that he is doing better, his PICC line was not working but we flushed and apparently now he has been fine. As per the patient, he has been having chronic nasal bleed, today he had 1 episode that lasted about 3 hours but now is controlled. PT, PTT, INR is normal. OBJECTIVE: Vital Signs: Temperature 97.9 degrees, pulse 72, respiratory rate 18, blood pressure 124/70, O2 saturation 100% on room air. HEENT: Head normocephalic. No trauma. PERRLA. Neck: Supple. No JVD. No masses. Central trachea. Chest: Clear to auscultation. No wheezing. No rales. Abdomen: Soft, nontender, nondistended. No hepatosplenomegaly. Extremities: Left lower extremity is covered with a dressing that looks clean and dry. There are no signs of discharge. The right lower extremity looks a little bit edematous. There is a dressing with wound VAC at the level of the calcaneus. Neurological: The patient is alert and oriented x3. No focal neurological motor deficits. LABORATORY: WBC 6.9, hemoglobin 8.3, hematocrit 26.3, platelets 445,000. Sodium 133, potassium 4.4, chloride 97, bicarbonate 26, BUN 27, creatinine 0.9, glucose 196, calcium 8.1. ASSESSMENT AND PLAN: 1. Severe bilateral lower extremity diabetic wounds. He is using a right lower extremity wound vacuum assisted closure. He refuses to use the wound VAC on the left foot. Infectious Disease Department is following this patient. We will continue with the same management for now. Hopefully this patient will be discharged next Thursday. 2. MRSA wound infection/osteomyelitis with bacteremia. This patient is on vancomycin. We will continue with the same management. 3. Endocarditis of the tricuspid valve. Continue with antibiotics. 4. Superficial femoral arterial occlusion status post atherectomy and angiography. Aware. Surgery is following. 5. Anemia of chronic disease. Aware. 6. Complicated type 2 diabetes. Continue with the same management. 7. Folate deficiency. Continue with the same treatment. 8. History of deep venous thrombosis. Aware. 9. Tobacco abuse. I will continue with daily cessation education. 10. Medical noncompliance. Aware. We will continue with daily education. cc: Amrit Barker MD
[2016-08-15] MEDS: LEVEMIR SUBQ SCH (21:10)
[2016-08-15] MEDS: ZOCOR PO SCH (21:11)
[2016-08-16] MEDS: DILAUDID IV PRN ×5 (01:46→21:51)
[2016-08-16] MEDS: LOPRESSOR PO SCH ×4 (01:46→21:55)
[2016-08-16 05:15] LABS: MANUAL DIFF NEEDED? NO
[2016-08-16 05:30] LABS: AGAP 9; BUN 23 mg/dL (8-22); CALCIUM 8.3 mg/dL (8.8-10.2); CHLORIDE 94 mmol/L (98-107); COSMO 273; POTASSIUM 4.5 mmol/L (3.5-5.1); SODIUM 132 mmol/L (136-145); TCO2 29 mmol/L (25-35)
[2016-08-16 05:32] LABS: BASO% 0.4 % (0.0-0.8); EOS# 0.09 X1000 (0.0-0.7); EOS% 1.7 % (0.0-10.0); HEMATOCRIT 26.7 % (42.0-52.0); HEMOGLOBIN 8.4 g/dL (14.0-18.0); IMM GRAN# 0.08 X1000 (0.0-0.04); IMM GRAN% 1.5 % (0.0-0.5); LYMPH# 1.72 X1000 (1.2-3.4); LYMPH% 32.1 % (20.5-51.1); MCH 28.9 PG (27-31); MCHC 31.5 g/dL (33-37); MCV 91.8 FL (81-99); MONO# 0.79 X1000 (0.11-0.59); MONO% 14.7 % (1.7-9.3); MPV 9.1 FL (7.4-10.4); NEUT% 49.6 % (42.2-75.2); PLT 463 X1000 (130-400); RBC 2.91 XMIL (4.7-6.1)
--- NOTE | 2016-08-16 05:52 | PROGRESS NOTE ---
DATE: 08/16/2016 SUBJECTIVE: No major issues. OBJECTIVE: Vital Signs: Patient is currently afebrile. His vital signs are stable. Extremities: Right calcaneal wound VAC is in place with good seal. Left dressing intact. There is no erythema extending up the left leg. LABORATORY: White blood cell count is 5, which is essentially is unchanged. Hematocrit is 26, which is essentially unchanged. Remainder of labs reviewed. ASSESSMENT/PLAN: A 56-year-old male with severe diabetic foot ulcers bilaterally, possible endocarditis. At this time, continue dressing changes. There is a plan for him to go home on Thursday with home health. We will continue current treatment. cc: Shane Peters MD
[2016-08-16] MEDS: PRILOSEC PO SCH (06:19)
[2016-08-16] MEDS: HUMULIN R SUBQ SCH ×4 (06:21→21:55)
[2016-08-16] MEDS: NICODERM PATCH TD SCH (08:29)
[2016-08-16] MEDS: PLAVIX PO SCH (08:29)
[2016-08-16] MEDS: FOLIC ACID PO SCH (08:29)
[2016-08-16] MEDS: LOVENOX SUBQ SCH (11:00)
--- NOTE | 2016-08-16 12:28 | PROGRESS NOTE ---
DATE: 08/16/2016 SUBJECTIVE: This patient states that he is doing fine. He is complaining of right lower extremity pain and nosebleed. This patient has been on Plavix and also Lovenox. I just stopped the Lovenox and I put this patient on heparin 5000 b.i.d. Probably, it is not going to decrease the bleed. OBJECTIVE: Vital Signs: Temperature 97.9 degrees, pulse 75, respiratory rate 18, blood pressure 129/66, oxygen saturation 100% on room air. HEENT: Normocephalic. No trauma. PERRLA. Neck: Supple. No JVD. No masses. Central trachea. Chest: Clear to auscultation. No wheezing. No rales. Abdomen: Soft, nontender, nondistended. No hepatosplenomegaly. Extremities: Left lower extremity is covered with a dressing that looks clean and dry. There are no signs of discharge. The right lower extremity looks a little bit edematous with redness around the calcaneal area. There is a dressing with wound VAC at the level of the calcaneus. Neurological: The patient is alert and oriented x3. No focal deficits. He moves all 4 extremities. LABORATORY: WBC 5.3, hemoglobin 8.4, hematocrit 26.7, platelets 463,000. Sodium 132, potassium 4.5, chloride 94, bicarbonate 29, BUN 23, creatinine 0.8, glucose 190, calcium 8.3. ASSESSMENT AND PLAN: 1. Severe bilateral lower extremity diabetic wounds. He is using right lower extremity wound VAC assisted closure. He refuses to use the wound VAC on the left foot. Infectious Disease Department is following this patient. Will continue with the same management for now. Hopefully, this patient is going to be discharged next Thursday. This patient has been complaining mostly of right lower extremity pain. I will continue with the same pain medication and I will start this patient on gabapentin. 2. Methicillin-resistant Staphylococcus aureus bacteremia/wound infection/osteomyelitis. This patient is on vancomycin. We will continue with the same management as per Infectious Disease. 3. Endocarditis of the tricuspid valve. Continue with antibiotics. 4. Superficial femoral arterial occlusion, status post atherectomy and angiography. Aware. Surgery is following. 5. Anemia of chronic disease. Aware. 6. Complicated type 2 diabetes. Continue with the same management. 7. Folate deficiency. Continue the same treatment. 8. History of deep vein thrombosis. Aware. 9. Tobacco abuse. I will continue with daily cessation education. This patient has been highly advised against tobacco abuse. 10. Medical noncompliance. Aware. We will continue with daily education. cc: Amrit Barker MD
[2016-08-16] MEDS: VANCOMYCIN 2,500 MG in NS 500 ML IV SCH (13:27)
[2016-08-16] MEDS: SANTYL OINT TOP SCH (13:27)
[2016-08-16] MEDS ORDERED: HEPARIN SUBQ SCH (21:00)
[2016-08-16] MEDS: NEURONTIN PO SCH (21:54)
[2016-08-16] MEDS: ZOCOR PO SCH (21:55)
[2016-08-17] MEDS: LEVEMIR SUBQ SCH ×2 (01:13→20:47)
[2016-08-17] MEDS: DILAUDID IV PRN ×6 (01:14→20:46)
[2016-08-17] MEDS: LOPRESSOR PO SCH ×4 (04:03→20:46)
[2016-08-17] MEDS: NORCO-10 PO PRN ×3 (05:16→17:49)
[2016-08-17 06:48] LABS: MANUAL DIFF NEEDED? NO
[2016-08-17 07:02] LABS: BASO% 0.4 % (0.0-0.8); EOS# 0.07 X1000 (0.0-0.7); EOS% 1.4 % (0.0-10.0); HEMATOCRIT 27.1 % (42.0-52.0); HEMOGLOBIN 8.3 g/dL (14.0-18.0); IMM GRAN# 0.04 X1000 (0.0-0.04); IMM GRAN% 0.8 % (0.0-0.5); LYMPH# 1.58 X1000 (1.2-3.4); LYMPH% 31.9 % (20.5-51.1); MCH 28.2 PG (27-31); MCHC 30.6 g/dL (33-37); MCV 92.2 FL (81-99); MONO# 0.77 X1000 (0.11-0.59); MONO% 15.6 % (1.7-9.3); MPV 9.3 FL (7.4-10.4); NEUT% 49.9 % (42.2-75.2); PLT 465 X1000 (130-400); RBC 2.94 XMIL (4.7-6.1)
[2016-08-17] MEDS: PRILOSEC PO SCH (07:07)
[2016-08-17] MEDS: HUMULIN R SUBQ SCH ×4 (07:08→20:48)
[2016-08-17 07:18] LABS: AGAP 9; BUN 23 mg/dL (8-22); CALCIUM 8.4 mg/dL (8.8-10.2); CHLORIDE 97 mmol/L (98-107); COSMO 279; POTASSIUM 4.1 mmol/L (3.5-5.1); SODIUM 134 mmol/L (136-145); TCO2 28 mmol/L (25-35)
[2016-08-17] MEDS: NICODERM PATCH TD SCH (11:46)
[2016-08-17] MEDS: PLAVIX PO SCH (11:46)
[2016-08-17] MEDS: NEURONTIN PO SCH ×2 (11:46→12:12)
[2016-08-17] MEDS: FOLIC ACID PO SCH (11:46)
[2016-08-17] MEDS: SANTYL OINT TOP SCH (12:13)
[2016-08-17] MEDS: VANCOMYCIN 2,500 MG in NS 500 ML IV SCH (13:54)
[2016-08-17] MEDS ORDERED: INSULIN PEN NEEDLES ONE (15:56)
--- NOTE | 2016-08-17 16:32 | PROGRESS NOTE ---
DATE: 08/17/2016 SUBJECTIVE: This patient states that he is doing fine, he was complaining yesterday of nosebleed. I stopped the heparin and apparently the nosebleed is better now. He has been also on Plavix and I will continue with this treatment. OBJECTIVE: Vital Signs: Temperature 98.5 degrees, pulse 84, respiratory rate 16, blood pressure 146/42, O2 saturation 100% on room air. HEENT: Head normocephalic. No trauma. PERRLA. Neck: Supple. No JVD. No masses. Central trachea. Chest: Clear to auscultation. No wheezing. No rales. Abdomen: Soft, nontender, nondistended. No hepatosplenomegaly. Extremities: Left lower extremity is covered with a dressing that looks clean and dry. There are no signs of discharge. The right lower extremity looks a little bit erythematosus with redness around the calcaneus. There is a dressing with wound VAC at the level of the calcaneus. Neurological: The patient is alert and oriented x3. No focal deficits. LABORATORY: WBC 4.9, hemoglobin 8.3, hematocrit 27.1, platelets 465,000. Sodium 134, potassium 4.1, chloride 97, bicarbonate 28, BUN 23, creatinine 0.9, glucose 234, calcium 8.4. ASSESSMENT AND PLAN: 1. Severe bilateral lower extremity diabetic wounds. He is using right lower extremity vacuum- assisted closure, he refuses to use wound vacuum-assisted closure on the left foot. Infectious Disease Department is following this patient as well as surgery. Will continue with the same management for now. Hopefully this patient is going to be discharged tomorrow, he is still complaining of right lower extremity pain. Yesterday I started gabapentin. I will continue with the same management for now. 2. Methicillin-resistant Staphylococcus aureus bacteremia, methicillin-resistant Staphylococcus aureus wound infection and osteomyelitis. This patient is on vancomycin. I will continue with the same management as per Infectious Disease Department. 3. Endocarditis of the tricuspid valve. Continue with antibiotics. 4. Superficial femoral arterial occlusion is status post atherectomy and angiography. Aware. 5. Anemia of chronic disease. Aware. 6. Complicated type 2 diabetes. Continue with the same management. 7. Folate deficiency. Continue with the same management. 8. History of deep vein thrombosis. Aware. 9. Tobacco abuse. I will continue with daily cessation education. 10. Medical noncompliance. Aware. We will continue with daily education. 11. Epistaxis. This patient apparently spent at least 3 hours with nosebleed, that has been on and off and apparently this has been chronic as well. I stopped the heparin and I kept this patient on Plavix and probably the nosebleed resolved but I will continue to monitor. cc: Amrit Barker MD
[2016-08-17] MEDS: ZOCOR PO SCH (20:46)
[2016-08-18] MEDS: NEURONTIN PO SCH ×2 (00:37→09:40)
[2016-08-18] MEDS: NORCO-10 PO PRN ×4 (00:37→16:21)
[2016-08-18] MEDS: DILAUDID IV PRN ×6 (00:40→16:53)
[2016-08-18] MEDS: LOPRESSOR PO SCH ×2 (02:49→06:48)
[2016-08-18 06:25] LABS: MANUAL DIFF NEEDED? NO
[2016-08-18 06:40] LABS: BASO% 0.4 % (0.0-0.8); EOS# 0.08 X1000 (0.0-0.7); EOS% 1.6 % (0.0-10.0); HEMATOCRIT 25.7 % (42.0-52.0); IMM GRAN# 0.06 X1000 (0.0-0.04); IMM GRAN% 1.2 % (0.0-0.5); LYMPH# 1.73 X1000 (1.2-3.4); LYMPH% 35.2 % (20.5-51.1); MCH 28.6 PG (27-31); MCHC 31.1 g/dL (33-37); MCV 91.8 FL (81-99); MONO# 0.85 X1000 (0.11-0.59); MONO% 17.3 % (1.7-9.3); MPV 9.1 FL (7.4-10.4); NEUT% 44.3 % (42.2-75.2); PLT 462 X1000 (130-400)
[2016-08-18 06:50] LABS: AGAP 6; BUN 27 mg/dL (8-22); CALCIUM 8.3 mg/dL (8.8-10.2); CHLORIDE 95 mmol/L (98-107); COSMO 275; POTASSIUM 4.6 mmol/L (3.5-5.1); SODIUM 131 mmol/L (136-145); TCO2 30 mmol/L (25-35)
[2016-08-18] MEDS: HUMULIN R SUBQ SCH (06:54)
--- NOTE | 2016-08-18 07:40 | PROGRESS NOTE ---
DATE: 08/18/2016 PRESENT ILLNESS: The patient has methicillin-resistant Staphylococcus aureus bacteremia, pulmonary valve endocarditis, and osteomyelitis of both feet. MEDICATIONS: This is day 9 of treatment with vancomycin following the patient's first negative blood culture. PHYSICAL EXAMINATION: Vital Signs: Temperature is 98.5 degrees, pulse 73, respirations 18, blood pressure 107/54. General: This is a somewhat ill-appearing middle-aged male. He is in no acute distress. Extremities: The patient has a PICC in his right arm. The site is not swollen or red. The patient's left foot has a dressing around it. The dressing is intact. The patient's right foot has the VAC in place. There is no surrounding erythema. LABORATORY AND X-RAY: There is no new x-ray for today. The patient's CBC shows a white count of 4920, hemoglobin 8, platelet count 462,000. Creatinine is 1. GFR is greater than 60. ASSESSMENT AND PLAN: I plan to continue the patient's vancomycin to treat his methicillin- resistant Staphylococcus aureus bacteremia, pulmonary valve endocarditis, and osteomyelitis of both feet. COMORBIDITIES: The patient's comorbidities include diabetes mellitus, peripheral vascular disease, and cigarette smoking. cc: Sj Juárez MD
[2016-08-18 07:56] VITALS: BP 151/90
[2016-08-18] MEDS: PRILOSEC PO SCH (08:22)
[2016-08-18] MEDS: PLAVIX PO SCH (09:41)
[2016-08-18] MEDS: NICODERM PATCH TD SCH (09:41)
[2016-08-18] MEDS: FOLIC ACID PO SCH (09:41)
[2016-08-18] MEDS: VANCOMYCIN 2,500 MG in NS 500 ML IV SCH (13:22)
--- NOTE | 2016-08-18 14:47 | PROGRESS NOTE ---
DATE: 08/18/2016 SUBJECTIVE: Feels well. Pain is controlled with his oral regimen. No other events. Dressing changes are going well. OBJECTIVE: Vital signs: No fevers. Heart rate 73, blood pressure 151/90, oxygen saturation 99% on room air. General: He is alert, in no acute distress. Extremities: Bilateral lower extremities are well perfused. The left foot wound is granulating well. There is minimal fibrous tissue and the bone is granulating over the right calcaneal wound. Also there is granulation tissue over the calcaneus bone and the surrounding wound is granulating well with bleeding tissue noted. LABS: White count of 4. Creatinine is 1.0. Glucose 229 but it is fluctuating. ASSESSMENT AND PLAN: This is a 56-year-old male with a severe infection in bilateral lower extremities, methicillin-resistant Staphylococcus aureus. These are doing okay. From a surgical standpoint he is okay to go. I can see him at [place] in [address] Juárez made arrangements for 7 weeks of IV antibiotics at home with vancomycin. He has a PICC line in place. [facility] has made arrangements for his VAC changes. He will continue Santyl to both wounds with either saline or Vashe dressings on the left foot and the wound VAC to the right with Santyl placed to the wound bed prior to changes. They will continue this 3 times weekly. I will following him at weekly intervals at [facility], where we know him there and have documentation of his previous wounds. From an anticoagulated standpoint, he has had some bleeding with Eliquis. We are holding this. 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 I recommend he continue this at home for his left SFA stent. Hospitalist will make arrangements for this. cc: Jailyn Geronimo MD
--- NOTE | 2016-08-19 10:18 | DISCHARGE SUMMARY ---
ADMISSION DATE: 08/01/2016 DISCHARGE DATE: 08/18/2016 CONSULTATIONS: 1. Dr. Delgado Merino with General Surgery. 2. Dr. Mitch Blanchard with Cardiology. 3. Dr. Sj Juárez with Infectious Disease. PERTINENT PROCEDURES: 1. Left foot x-ray showed cellulitis to the foot with questionable osteomyelitis involving the distal and 1st metatarsal. 2. Right foot x-ray showed cellulitis as well as osteomyelitis to the calcaneus. 3. Lower extremity arterial study showed left superficial femoral occlusion. On the right, there does appear to be adequate flow to the ankle and the heel level. Digital flow is severely compromised. Aorta with runoff CTA showed occlusion of the left superficial femoral artery with reconstitution distally. Osteomyelitis in the left foot and right calcaneus. Hepatosplenomegaly with fatty infiltration of the liver. 4. Echocardiogram showed an ejection fraction of 55% with no obvious wall motion. 5. Excisional debridement tissue from the left 1st metatarsal. Excisional debridement tissue of the right calcaneus tissue and calcaneal bone for culture performed by Dr. Rohith Geronimo. 6. Left femoral artery access with ultrasound guidance. Anterograde approach. Percutaneous. Left superficial femoral artery, atherectomy, and drug-coated balloon angioplasty performed by Dr. Delgado Merino. 7. MARY showed a 0.8 cm mass noted in the pulmonic valve on the ventricular side which was hazy, not visualized well on all views suggestive of vegetation not associated with any abscess. 8. Excisional debridement of right heel wound down to and including debridement of calcaneal bone. Excision debridement of left forefoot wound that included completion amputation of the 1st metatarsal bone on the left. DISCHARGE DIAGNOSES: 1. Severe infection of the bilateral lower extremities with MRSA. The patient is status post 2 debridements with amputation of the metatarsal. He will follow up with Dr. Rohith Geronimo in 1 week at [place], as well as continuing IV antibiotics with Dr. Sj Juárez. The patient does have a PICC line in place. [facility] has made arrangements for wound VAC changes and continue Santyl to both wounds with either saline or Vashe dressings on the left foot and moved back to the right with Santyl placed to the wound VAC prior to changes. This will continue t.i.d. weekly. 2. MRSA bacteremia, pulmonary valve endocarditis and osteomyelitis of both feet. Followed by Dr. Sj Juárez. The patient will continue with IV vancomycin. 3. Endocarditis of the tricuspid valve. Continue antibiotics. 4. Superficial femoral arterial occlusion status post this atherectomy and Angiography continue with Plavix and aspirin. 5. Anemia of chronic disease, aware. 6. Type 2 diabetes, uncontrolled. 7. Folate deficiency. 8. Deep venous thrombosis history, aware. 9. Tobacco abuse. The patient has been discussed daily about smoking cessation as well as the means to quit. 10. Medical noncompliance. The patient continues to have daily education about being compliant with medications as well as wound care and IV antibiotics. 11. Epistaxis, resolved. HOSPITAL COURSE: Mr. Morataya is a 56-year-old male with a history of poorly-controlled diabetes, right lower extremity DVT on anticoagulant, severe bilateral diabetic foot ulcers, previously seen by Dr. Geronimo as well as others. Patient reported with acute onset of weakness to the ED. He stated that he had essentially been bed ridden for 2 months because of chronic right lower extremity pain since his DVT diagnosis. He checked his blood sugar at home. It was 555. He did call a local walk-in clinic to ask them if he could drink water to bring his sugar down. They advised him to come to the ED. The patient was noted to be in atrial fibrillation with RVR. His lab work was consistent with leukocytosis, anemia, renal insufficiency, and hyponatremia. Both lower extremities appeared to be chronically infected and foul smelling, as well as reported fairly severe pain in both his feet. The patient was initiated on IV Cardizem. He was admitted to [facility] for atrial fibrillation with RVR and early sepsis. He was started on IV fluids as well as a consult for Cardiology as well as General Surgery and started on IV antibiotics. The patient did undergo [address] Rohith Geronimo. One resulted in a wound VAC and the other resulted in the amputation of the metatarsal. The patient also underwent a left SFA by Dr. Merino. He will continue on Plavix and aspirin. The patient did have a MARY that did show vegetation noted on the pulmonic valve on the ventricle side. The patient's blood cultures did grow out Staphylococcus aureus. Dr. Sj Juárez was on board. The patient did receive a PICC line. Arrangements have been made for Dr. Juárez for the patient to receive 7 more weeks of IV antibiotics at home with vancomycin as well as home health arrangements have been made for wound VAC changes. He will continue Santyl to both wounds with either saline or Vashe dressing on the left foot and a wound VAC on the right with Santyl placed in the wound bed prior to changes t.i.d. weekly. Dr. Geronimo will follow him on weekly intervals at [facility] so they can document his wounds. VITAL SIGNS: At the time of his discharge, temperature is 98.5 degrees, heart rate 73, respirations 20, blood pressure 151/90, O2 is 99% on room air. DISCHARGE DIET: Diabetic. DISCHARGE MEDICATIONS: 1. Plavix 75 mg p.o. daily. 2. Santyl ointment 1 application topical as directed. 3. Folic acid 1 mg p.o. daily. 4. Neurontin 200 mg p.o. t.i.d. 5. Tullos 10/325, 2 each p.o. q.6 hours p.r.n. 6. Levemir 40 units subcutaneous at bedtime. 7. Losartan hydrochlorothiazide 125 mg tab, one each p.o. daily. 8. Glucophage 1000 mg p.o. b.i.d. 9. Blood pressure 25 mg p.o. q.6 hours. 10. Prilosec 40 mg p.o. daily. 11. Xarelto 20 mg p.o. daily. 12. Zocor 40 mg p.o. at bedtime. 13. Januvia 100 mg p.o. at bedtime. Medications are as per Dr. Gutierrez. FOLLOWUP: The patient is being discharged home with home health as well as continue on IV infusions for vancomycin. The patient will follow up outpatient at [facility]. First appointment will be 09/02/2016 at 12:15. The patient will continue his home regimen of wound care as instructed by Dr. Julia Geronimo and Home Health will do the wound VAC dressing changes. The patient is to return to the ED for any worsening of symptoms. Discharge time greater than 30 minutes. Dictated by DEVIN Houston for Amrit Barker MD cc: Amrit Barker MD [facility]
== END 2016-08-18 16:59 | disposition home health service (06) ==
LOC: ED 15:41 → SUATTDRO 20:19 → 3S 20:19 → 4N 08-16 17:47
PROVIDERS: ATTEND Internal Medicine